=== PATIENT | male | born 1965 ===

== ENCOUNTER 2023-03-20 08:27 | Outpatient (OUT) | payer OTHER, SELFPAY ==
--- NOTE | 2023-03-20 | XR_ITS ---
The [address] [address] Patient Name: JEFFERSON MABRY MRN: [id number] date: 1965 Sex: M Assigned Patient Location: RAD Current Patient Location: [facility] Accession/Order Number: [id number] Exam Date: 03/20/2023 15:15 Report Date: 03/20/2023 15:43 At the request of: TANIYA SALDIVAR Procedure: XR foot LT min 3V PROCEDURE: XR foot LT min 3V COMPARISON: None. HISTORY: LEFT FOOT PAIN FINDINGS: BONES:No acute fracture or dislocation. No focal lytic or sclerotic changes. SOFT TISSUES:Negative. No visible soft tissue swelling. EFFUSION:None visible. OTHER: Negative. XR/XR foot LT min 3V IMPRESSION: No acute abnormality Electronically authenticated by: MALIA SCHAFFER Date: 03/20/2023 15:43
== END 2023-03-20 08:28 | disposition home or self-care (01) ==
LOC: RAD 08:32
PROVIDERS: Visit Provider Podiatrist Foot & Ankle Surgery
DX: M72.2 Plantar fascial fibromatosis (principal)
CPT/HCPCS: 73630

== ENCOUNTER 2023-03-26 09:27 | Outpatient (OUT) | payer OTHER, SELFPAY ==
--- NOTE | 2023-03-26 09:30 | MR_ITS ---
The [address] [address] Patient Name: JEFFERSON MABRY MRN: [id number] date: 1965 Sex: M Assigned Patient Location: MRI Current Patient Location: MRI Accession/Order Number: [id number] Exam Date: 03/26/2023 09:37 Report Date: 03/26/2023 12:20 At the request of: TANIYA SALDIVAR Procedure: MR ankle LT wo con HISTORY: Chronic pain in the left heel for the past 19 months. Plantar fasciitis. MR ankle LT wo con: 03/26/2023, 9:37 AM EST COMPARISON: Radiographs left foot 03/20/2023. TECHNIQUE: Multiplanar, multisequence MRI images of the ankle were obtained without contrast. A sagittal STIR sequence of the entire left ankle and foot was also obtained. FINDINGS: LIGAMENTS: The anterior talofibular ligament appears within normal limits. The calcaneofibular ligament, posterior talofibular ligament, and distal tibiofibular ligaments appear within normal limits. The deltoid ligament complex appears within normal limits. The Lisfranc ligament complex appears intact. TENDONS: No significant tendinopathy, tendon tear, or tenosynovitis is seen. SINUS TARSI AND TARSAL TUNNEL: No space-occupying mass is seen in the tarsal tunnel or the sinus tarsi. BONES AND JOINTS: The bone marrow signal intensity is age appropriate. No unstable osteochondral defect of the tibiotalar joint is identified. At the edge of the [id number] there is bone marrow edema-like signal involving the shaft and tuft of the first distal phalanx. There also appear to be hammertoe deformities of the second and third toes. PLANTAR FASCIA: There is a small plantar calcaneal enthesophyte. There is severe thickening and intermediate signal intensity involving the proximal 1.7 cm of the central band of the plantar fascia at its attachment to the calcaneus. There is also mild thickening and intermediate signal intensity involving the proximal portion of the lateral band of the plantar fascia at its attachment to the calcaneus. No significant tear of the plantar fascia is seen. SOFT TISSUES: No significant soft tissue swelling is seen. MR/MR ankle LT wo con IMPRESSION: 1. There is severe plantar fasciitis involving the proximal portion of the central band of the plantar fascia and mild plantar fasciitis of the proximal portion of the lateral band of the plantar fascia. 2. At the edge of the [id number] there is bone marrow edema-like signal involving the shaft and tuft of the first distal phalanx which may be secondary to a stress reaction or bone contusion, but this is nonspecific. 3. No ligament injury or tendon abnormality is seen. Electronically authenticated by: OLLIE TIM Date: 03/26/2023 12:20
--- OUTSIDE RECORDS SUMMARY | 2023-03-26 09:30 | XMS_ITS | CCD ---
Author Name Unknown Address [address] [facility] [address] [place] [address] Organization [facility] Care Team Providers Care Thermometer Tester Name Role Phone DR PEPITO WEINBERG Consulting Unavailable TANIYA SALDIVAR Attending Unavailable TANIYA SALDIVAR Admitting Unavailable TANIYA SALDIVAR Consulting Unavailable Tammy Sarmiento Unavailable DO Pepito Rosales Primary Care Provider MD Tammy Sarmiento Attending Provider Pepito Rosales Primary Care Unavailable Tammy Sarmiento Attending Unavailable Tammy Sarmiento Admitting Unavailable Bobby, Pepito P Primary Care Unavailable Bobby, Pepito P Primary Care Unavailable Bobby, Pepito P Attending Unavailable Bobby, Pepito P Primary Care Unavailable Bobby, Pepito P Attending Unavailable Bobby, Pepito P Attending Unavailable Bobby, Pepito P Primary Care Unavailable Bobby, Pepito P Primary Care Unavailable ALYSON Vallejo Admitting Unavailable ALYSON Vallejo Attending Unavailable Bobby, Pepito P Attending Unavailable Bobby, Pepito P Admitting Unavailable Bobby, Pepito P Primary Care Unavailable Bobby, Pepito P Primary Care Unavailable Bobby, Pepito P Attending Unavailable Bobby, Pepito P Admitting Unavailable Bobby, Pepito P Attending Unavailable Bobby, Pepito P Primary Care Unavailable Bobby, Pepito P Admitting Unavailable Bobby, Pepito P Primary Care Unavailable Bobby, Pepito P Attending Unavailable Bobby, Pepito P Admitting Unavailable Allergies Allergy Classification Reported Allergen(s) Allergy Type Date of Onset Reaction(s) Facility (2 sources) Ciprofloxacin; Translations: [ciprofloxacin] Drug Allergy Unknown [facility] Repository (3 sources) moxifloxacin; Translations: [moxifloxacin] Drug Allergy rash [facility] Repository (1 source) Sulfonamides (Antibiotic) Propensity to adverse reactions Unknown [facility] Other (1 source) moxifloxacin; Translations: [Avelox] Drug Allergy [facility] Repository (1 source) Sulfonamides (Antibiotic); Translations: [sulfa drugs] Propensity to adverse reactions to drug (disorder) [facility] Repository Medications Current Medications Medication Drug Class(es) Dates Sig (Normalized) Sig (Original) atorvastatin 80 mg oral tablet (1 source) HMG-CoA Reductase Inhibitor take 1 tablet by mouth every twenty-four hours Atorvastatin Calcium 80 MG 1 tablet Orally Once a day Active clopidogrel 75 mg oral tablet (1 source) P2Y12 Platelet Inhibitor take 1 tablet by mouth every twenty-four hours Clopidogrel Bisulfate 75 MG 1 tablet Orally Once a day Active metoprolol tartrate 100 mg oral tablet (1 source) beta-Adrenergic Chad take 1 tablet by mouth every twelve hours Metoprolol Tartrate 100 MG 1 tablet with food Orally Twice a day Active nitroglycerin 0.4 mg sublingual tablet (1 source) Nitrate Vasodilator Nitrostat 0. 4 MG Sublingual Active sertraline 25 mg oral tablet (1 source) Serotonin Reuptake Inhibitor take 1 tablet by mouth every twenty-four hours Zoloft 25 MG 1 tablet Orally Once a day Active Completed/Discontinued Medications Medication Drug Class(es) Dates Sig (Normalized) Sig (Original) Amoxicillin / Clavulanate (1 source) Penicillin-class Antibacterial Start: 05-13-2018 take 1 tablet by mouth every twelve hours Augmentin 875-125 MG 1 tablet Orally every 12 hrs for 20 day(s) *please review for potential _update for e-prescription and drug interaction check* May, Not-Taking aspirin 81 mg delayed release oral tablet (1 source) Platelet Aggregation Inhibitor, Nonsteroidal Anti-inflammatory Drug take 1 tablet by mouth every twenty-four hours Aspirin Adult Low Dose 81 MG 1 tablet Orally Once a day Not-Taking azelastine hydrochloride 0.137 mg/actuat metered dose nasal spray (1 source) Histamine-1 Receptor Antagonist take 2 spray(s) nasal route twice daily Azelastine HCl 0.1 % 2 sprays each side Nasally Twice a day Not-Taking Fish Oils (1 source) Fish Oil *please review for potential _update for e-prescription and drug interaction check* Not-Taking loratadine 10 mg oral tablet (1 source) Claritin 10 MG 1 tablet Orally prn Not-Taking Nasonex 50 MCG/ACT (1 source) Start: 04-01-2018 take 2 spray(s) nasal route once daily Nasonex 50 MCG/ACT 2 sprays in each nostril Nasally Once a day for 30 day(s) Mar, Not-Taking ubidecarenone 200 mg oral capsule (1 source) take 1 capsule by mouth every twenty-four hours Co Q 10 200 MG 1 capsule with a meal Orally Once a day *please review for potential _update for e-prescription and drug interaction check* Not-Taking Problems Problem Classification Problem Date Documented Date Episodic/Chronic Osteoarthritis (1 source) Heberden node; 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 Other connective tissue disease (4 sources) Pain in right foot; Translations: [PAIN IN RIGHT FOOT] Onset: 02-15-2022 Episodic Other connective tissue disease (1 source) Calcaneal spur, left foot; Translations: [CALCANEAL SPUR LEFT FOOT] Onset: 02-16-2022 Episodic Other non-traumatic joint disorders (1 source) Undifferentiated inflammatory polyarthritis; Translations: [Polyarthritis, unspecified] Chronic Other upper respiratory disease (1 source) Allergic rhinitis due to pollen; Translations: [Allergic rhinitis due to pollen] Chronic Other upper respiratory infections (1 source) Chronic sinusitis; Translations: [Chronic sinusitis, unspecified] Chronic Spondylosis; intervertebral disc disorders; other back problems (2 sources) Cervicalgia; Translations: [Cervicalgia] Onset: 06-13-2022 Episodic Results Test Name Value Interpretation Reference Range Facility Coding Summaryon 02-28-2023 [facility] PiddmuarUHy4pRg+PGhl YWQ+AV8HJIFpO85fvYGz dC7aB0IPBQoQCbdfPLOK QLmATbRvobYjXT0ltAMb ZXJu IC8+UI0mGPSnEehffJFy y5D7zFJ9A38ych0kOBbl sZC5MCTbKfYbkjeiq3df tWj2RSvaDzacDhLw OIRyoH94ZIG0aT19Cm59 vZRrnYFjr8nwnPe4HiNc ZHMcVBY9iSdcIBffn6Dz BVInQ18bwNDiw7M2 IGNvbGxhcHNlOyBlbXB0 dP9lWRqzuldtb2rjssfr Vvw3kn49lJDht2X4uNJ7 N0HmxjN9QOWxaCIs EelirABIhP3nawzhx4yp afdyTnZqDCZaWPz5SBo7 QLVdoSboSjOiDN59KNO3 EMNafgFoP3YmTJBz nFfcWkU5l8K0Wt0CD9BD KasqY3DXOEMFBKfbmAZ+ QY68zn91Y1HdJbgnWab3 ZFDiEAQ3eEA4kN0q HXCyHQtpk1Z8fNM8U0As joUrjb7pb3ipITSaHXfd D77fpJYgv0D1JDOivWP8 LDIlcUkpXnWfnI52 Oyc+BVRwlLfwq2LaKzdn m9aue3zchMb5XdimBBSb mtCbmKfjIJV8u0BsNv2b NCWfbAN5bOS5lM2r AgCfBcY6SLwnW945NxSx qDNiGopqE01aQ8AekVY+ SYSzTib6AEEngAreSG4n F8JrJRYgopldzQLd wJobJC3nBNDijssfZVYt yP6oTFDjT6v1NtAiSmS4 MCbhB5WtAQEfrgsuRo19 lG7pDdAfCsL0TVfu H4OoigO4HZXlyGBgSFph GMQ5W07zi4P8FWTaGKGj JLE5uAH8eU0ogHjutyjf bGVmdDsgdmVydGlj TIgtUCcnG917UDPxjXhi PkNvZGluZyBEYXRlOiAg MDEvMjQvMjAyNDwvdGQ+ SJYwYPP0rGonVPWx bSYrYMopQc9lqPnznPkv ET9nDQMkkcsfDKLodR7l ZCYxlRTsjBovJT8tYZHx bzwvv638CaVoCES7 YGQifYIuS0CpvN2gGkYr VUHnJMFzS9SbeIAbYWix A842IKbsBjL2GOZipvHf T4ArPDKmlUluGuM9 o6S8Mt2Ot4MkplmuE9Ol vKIyPeMnPdcjIMz4D6Kb PjwvdHI+OE41RVVpMH24 TSo5DEU9yQaqQJvv GLQzI4DopC5tMaElDSVl ZGRkOyc+PHRhYmxlIHdp ZHRoPScxMDAlJyBzdHls ZX4eMw5zHWVwRATk gJpznDIwIlMcy7pvUBBq IHddQM5rkApxS4NcsOI5 JQVge6n1Eq30U88vB9Wq dXA+TSLabVM3uEC4 bQ2zIoCnIbI7QBngS518 IrFkwHKvCbksj3xuj3hd pCk5ObF6FMEtigQylJnp BSM1r3JeIe97L42j IHdpZHRoPSIxNSUiIHZh hGawwu8zqC3gAl2+PGNv zUY4oJQ2hL6uLxXyQvA3 MWwzP371EgRfpHMn Wrunv0bmw6royCu1HeTz SBGyzhBswGegXUM0k0Ep Py32N8SiuZhak6JhFlp4 xe83uYXra0B6wRK7 P7XrRUZnhzvynGMrsDdz UV7vVQQdwkmxZZKzpK0r DGWpJ7o3AiGmAeK0JQri T3EzppV2LGBwsTVk ZOOkeQFSpI7shylzd8um aheyJdPlGYAbYLp6HVv9 KJWnfAqaJtDwVIS5GrO1 UDM8uMTyqK6qiMlc fkbhlW4xGim+KXA4vXJx qPIOOQ9oImeinTA+PHRk CBE5vZunVAujOBPboO2x OYWlF0k4IzYjXyK8 UMnuL3HhdyV0VOSdkJZm GGHhvKVDyV8yvvybu5bv vtxqUyMrTIVqLRr4MMn9 LWFsaWduOiBsZWZ0 DtN0WRE1fLYvzQ1oeXsw deyctY7wKte+QmlydGgg PNH4WEh9D5FeOqo7RNSx gAsyFH9hnDUoAYdu Qs4bhLzbxIdxKO8zLSQq xdxdt100VbYxt7amBTYu lXMsIBmmRJP0H46qb8T0 FCViDUWcGPJ3nPB5 mI1glQjdfvszoKBxdBtj drCkgZbxKPexDEiiW553 CQQwpEdiMqEhMAp4X6Ip Cdt3VMCscFreSD7p vVGuEAasFe8wyIxxoHzt XI9oWLPeuqsrp222JjSa j6zlTIKdgGGuTMdgJQE4 W95bb4J1YLAwNUOe GMV4nNS0uW5ziPskbjhg bGVmdDsgdmVydGljYWwt COyxW427TFYsgUziGePp gBh0B9QiOiu2LGBs qMjkWA2twEHzFKdoIl0o sLnefIdvXC6lRWIsxrrc g617ApJgf9apXGIwkJGo EMidWCT3B09js1S2 GVXpRXYbGTF7hQJ0gD2x bGlnbjogbGVmdDsgdmVy eTovORqvEXmtD261UFJq cDsnPlBhdGllbnQg BIxmYWs3C3GyBokylTR+ PA34QVMcGR76oUUfcXNq z5ozeXh0QhEhSHZnGIT2 kNjjDHiak1ZdHIXn R16hoGRxh7F3SGXutNhc xRSlHjYaiDL2eC1pQJuc hgwys8quocvtRjhvb3sj wh55iB22F23mVFet ZHRoPSIzMCUiIHZhbGln be2xnU8tTj3+PGNvbCB3 aVG7lI8gBOKnWpK3WZqv I776ExUfePSrHsul p7ipw8tpnZx4LzA9ZCCl cfFpkTqhOSR6h1HzAo20 M31yEEpiLUEgTHWeQPKc YIGbsUqdqh4ddO5h Ii8+NXLakWX1qHR9qM0j VvChXtJ2GGinG613PlIr rEEvWqhoH90yO8KooNV+ FMGzDjh2FKFoeCtx FQ9onFBbMQpwOv9lAEW7 UwIdDvWmGArwN3YyHDJi uqvgfcxozYN4WQHaOMJz oR49Te9jqSjuBAFs kYGBxJ2xaeela8vfsqln LiTjLMTfASd8PCx3ZRJz tJsrHwVwWHH7XvZ7TWJ5 qJLlpL3oqLpyeein oF6hO1GqUBCfcuvaGz65 dF7iMfSoKwP1COdfApn+ E4GJDVFCQEsqTXtDMjPK RVkgUzwvdGQ+PHRk QRR0lHnjYVivXIFmrR5y TVSvW2x5SjLcNmS9KVrr R8QqFWMursczSf93eR3m NkQeYtZ9SBjqN9Fz pxQ0IWHwpCXzKAtlKYR7 E68nl8N9UTXqAXKcJNJ0 iDG4eF1jwCsgbdfynJQy dDsgdmVydGljYWwt BSndK895CQHanZslLlTj YfX4GfK8AoB6S7VfLnm7 SXXfoPvbYG3ayQDmAAew Co3foWnhnAahDX5r VYSlmosjGJIkeW3rYFUk aSDveVdqRX1aMWNvqwwn c042GiFhNOA7EXKwmYWo Q8FmzI1eUqVnHXUq VYNdW7LfyVZlNBelF624 RDflZhH5OKDtsvJnO2Ps IOJksUmlTpO5j0I9Nn87 NyBZZWFyczwvdGQ+ ZMBxEQL6kFyoLUliUEBr yW3jUAVxT1z2VyGfFrF0 OBusZ2DzNROgovecEl11 uU8iWqTxSuM4UVzn X0VgpmF0GNPygCKrTIzh VHT7B01bh1M9GWVpUQEb LDD1zPJ8hR1gqBjqyvxt bGVmdDsgdmVydGlj DAphKTvjD459TUGelGcd Jv9ARFX1H5DbDcj5VWIr oCdfDD8liRIiKUffWo4s tAymqTvaZJ4uRFHr scahTNGocA6uXAKphWGi qSexUB7eMDOlcpafb702 LpEfDOS2DBUzxCCaX7Lg hC2hKrWyYHInGGNo Q8YzyTRxEDkhX158XXpg ZbE3XCSfcgMpF2WjFFXk oRhqWiW7v5O7Wd0TLWot dGQ+FQ14zz83C4Eh DzjwFhm2LTHnTIN5nQY9 yT4iULLsPUupp8T9hMN6 N8XohwNfby1tc8snMQAt PLahO07abZNdm4K8 XXTvcGI5FTPjhYpyDkLg vF46Iqh+ZFXssKdpf9Lp Scscu7rus7vldCs2VnBe JSIgdmFsaWduPSJ0 x5YuVx33A54rUOcgXPBr KQPyRDZgBYUcjAqeki9t qZ3wLm3+XFGqnSW9lHU6 hK9qRbEvQqH4WEkb S119KqRgdHExMuvfw4gc t1gkxCh8NmMwLJMbbjCb rQlbBWC7m6GxUb02G4Xq yYtig0FqPiq4ol67 qIQxp6Q3fBX1M0PbRRSc jtgxnBZbtOmnDB4dKSCw xrbyGPDquA9cQISbL1i9 DwEcDlY8LJpbJ8Bk ryD3EHPhlTHbGGInuBGF cS1khxfea9etcbnkZoEn SQXnHXh1QQr3STLqaPor ChIqCOL2OgO8VLS4 tLWsqV7jiOeujnhsgH4j Oyc+NRl3p5fauHOeNW9f sXZ7FR88OI69rLWka3G7 uFA7I4BePYElhvwk kbypdCY1RRDmAFCocB54 Ti4clLcxKg9mMUDkEUT5 CTJpnIPeJ2MyeY8kPmXj SZEdEZJvJ5BhlRSz TGozD251NEfdUbX8ATIz uiQgE9KmTDKbkVtnBaL2 b5U4Uq1XLE98XS62IL78 zMQhe8Z8cGE8X3Zy WXNuqyeweykceND6FREf EKOsyN67Ga1yiQxrUx0c ZJQgJVY4KJHtaLTvS1Im bN4kZoNxGYDbZACu D7LzeUYwPGirA152UHpb CwV2XJPhsxLgI0MnXKZj kIarIaQ8t9F5Xo6KSh57 MH05UA26yNUqv6Y7 wBO5X4AiZWFqjxfgkimb hGH9EFNpLKSylB07Tw5k sAzgLo9qSUEqQVH4GCXz vUHiF0JnxH7hGqBz UJDuZYThM2BepQKhYDab E757TAdqAuL0PLAurdSz K4ZuTCTrdNthOsS0v0O6 Hg9MJMjhyah3X6Qs PjwvdHI+UI56WUJyKU38 oEPvkHXmw0deoNp0GqAd SEPnALB2eIkeYJtqv5Iy WSVcC43luDDbf3E4 IGN (more content not included)... [facility] Coding Summary [employer]Base 64 MldazgyoNYz3oSp+PGhl YWQ+HY1APUTeR04giXEm xV8wL9RTUXyPXhuoHXEI WQpTPcGlcxVpLX3kzLGj ZXJu IC8+SY4nIBUkPvojcMCi d0R8fPS2J03shm4jWLpy hDB2UTKfTvUkayzbb2xk gNv1VOmgBatjLkBm PBPnrL59YKR8pT14Oh84 kMWarFJla7tbiTo4QsLg UULwTXV1nYfmKVnso9Qq FNIeZ87peOOvu7R1 IGNvbGxhcHNlOyBlbXB0 lM7sGLwnousta7ftkqma Kwi8mi74nBIip8D6fOL6 B3YhsoH8YAUkmNBb AehrdHBWaY3jtjkdw0fp seesMzPiLHMoAAg4LFr0 SHZifQahBeOdQN41YMS1 OBFayzXoK4RiGWBl xJecGpJ6j9S0Yx7CY5JO WkuqV9GBIFCSDAxlcHP+ GA16ec36R3SpIwnnFhv7 IACnOUY4lUD2wJ8r RFFrBUvoi2H8kBT7T7Nw wtGojp5fb6aoQNYgSSyv I30riQLeh5Y0SFGisKK5 NQQkkOdqHyKchO09 Oyc+MKUqjTwzg6KvKoul s0opb2kkjXe9IlmeODBh pjKnaDexTYI3s7AbVn1n IISwgKM0aAI8cA9o SaCyIiW9IRuvR797EeIo rQBhPdoxI63vP5KrnOS+ NEKpDre4MYLvmFkzYX5t Y4WqUHKogkuggMPu xYwnPD3xMTGapcyhICFd pB9xCIZjE6x9OxMaJyS7 JIwbJ9DbOEUghrrdYg60 lZ0eQtYrWfP8PIaf K4MwgsW5JDRooKErZBgl KVA0G02oe5N3ZHVtHUYj HOZ9hGO4jV1wxGhcjhta bGVmdDsgdmVydGlj VYoyECuyJ346WUQozPvc PkNvZGluZyBEYXRlOiAg MDEvMjQvMjAyNDwvdGQ+ PRXgFRR9bQgySZKk vESkVJgcEx6cxFttfMcr NA6pHWCaqdtmXOZewZ1k YKInoKEasEtfLP2uMESt ynmiu022JcMmUDH7 SXLvhHQeJ5XxkP6iNuIj ZSSqHSLmI0JcgBMqXXce Q820SZmdRrF9UTLcncRr E6YwDEDiePgwRfV4 q5N4Pu4Fe9LcahwiQ0Wh uQZaWnEsPiglMVl8G4Ga PjwvdHI+VH60MDZsRC04 XMp4SHG3cDpyQYid AELpQ7PiaI5jKfOsCFQu ZGRkOyc+PHRhYmxlIHdp ZHRoPScxMDAlJyBzdHls RM5eIa2qBOSoJITc iZxirYPeWmImg4xsIXAs ZYwsXE6xtBolC6TzmUV3 IZPep0f4Qw66D16mO9Xk dXA+JYCkzGS5sFQ9 iV9lAsLkQqG9YSqyY881 SnQpoPNlLydbc4bwo5of rZd3FuT3FTWuoaMvzZlc PZF5o0HbBe05C42o IHdpZHRoPSIxNSUiIHZh eYlnxi9ikS6cAh7+PGNv sHI0tEL4pS7nUeGuOuZ7 YJthH479PuIfdILx Lnjpk9tbr3tssTk9ZpCx TTObhkZjsKsmCND0o5So Po76D3WepWser5UkJvz0 og09mCArh9H1aZT8 K4ZpHJWczvizvJZduOfg EP3bSYVtoibbXXDjeC0h BISlO8o3DmXvKoS4BAjf Z0ByihV0AXPypTIo PRVukAOSkT9zwbppg1pq ubtbUlCrYMDzSJh8AXj0 MCUzuXrfYyKvTSO6RqG0 XYD9rZNkoM3htGlk qdyvpO7bEiu+BWU7zGOm wSPAGD6sKvjjuJC+PHRk SZQ7cTtyKZkzHRFkbX2k QAUcT7o4ClJsCrC6 BDowP4OwaaP5ZTOldISg GBTyySQRpF6zbnrwj5nw wkzpJpDsOXXwQYh4GQg4 LWFsaWduOiBsZWZ0 SjK0CJV8aRXztW9npYxc hjcmvG2kXye+QmlydGgg ENX3BOv6I8LrIey7FGRa lIrwIP1wzFSdXXmi Nz9zyWsfnXskYH5bLBZy jxulv514MnCqb0mvYFMz nPPyDUspNEK2K30is6T7 ZYVzJYEuJWA9fJE4 tK2yzUpcxopbhPUgiJwd cnLkxRigWLkrXQxmK273 TCXusMhkQbMfIJi9E8Ha Zgt4BLHzaSwgLJ8o iXOaFSpuVn2jaZyadZei LC1kTIPnlroiw104XqXj x2pnELGmuXQpJMlvEPK5 T16fs4Z6SUPdHMHa TSF6aXC6iS0roSxkiiji bGVmdDsgdmVydGljYWwt IHthM589EVVozIgxVmIi vPh3K9PjHmu4SMBm hAqhMR0mrQJdFDnuSb3q aMuynNeyXF1wLBRcsrgu y286SgByq0wfPXBooMWo QFwlDTO0I21fu1A6 FHKgEEDkOGS5qWZ7fM7s bGlnbjogbGVmdDsgdmVy bUzbNQzwIRdxK411JTTr cDsnPlBhdGllbnQg TYyyPKs9I1GxOackqTO+ AR67DLArSB63qCKbgLXt p1vosYe0PbAcISToFTI8 mNteUOlfg5ZjHJLz H36pzLOij7R3PPLrdBim eBWaZmMxeER2yU5uDXcl psljy6otitzdVkhrx5jm kh53jZ67H71rHLic ZHRoPSIzMCUiIHZhbGln qo1moI3aTr1+PGNvbCB3 oYW7uO0lZBYhViO0RGwm G538VqHfsCKjFcde d6zpi0ughLr4PeZ5ZTEj qbWraSzlNMP8a1TiBk09 J58hCLvrZMViYGCcZDGm NKXunFzwyc2xlV9k Ii8+XWFoeDK1tTF7bR1i VgTdKwB7HGwiV192AdNt ePPfUplwU30kY4RfpPW+ BJWjHxk9RIMafNqz HE4xgRScNKlzVm9uEKG2 XtOcAeWuBYaxY6SzAJPg bbexufwjiEQ2QXVnYYGo fG99Ul7eiPcxEYVv oITAyQ8eybmkc7hslpez UdGiEOWhCQo2RUp4CBLt nLbaFmQnFQN0KiD7YJM5 iOKbgL4geTpupsxn eW3yS1IyWRUboqozZc97 pB8lDeNlRlJ3TZdeJau+ R8LOSKAOCNcgLNoRUmEE RVkgUzwvdGQ+PHRk UGR3wWpdIUjrTWXheU4h QYWdL2l1CgWgZlK9BHyr D4NfRWUtkcioVa65cH5b NpAqEiN4KMqaZ2Jo euZ9FIOrwCOaCUuzOSS7 X04lc4Z1TQMnMIFzURM5 xIA5nT2gpPguupowlOUt dDsgdmVydGljYWwt YIlfK048SAZnvLwaQvZl UzH2MlT2SmV6O9NmIkc7 XFNkwOtcKD0idPSsPMwv Cp8zcWkfaPqvBL6r QVEephveAMRpiY2mHHSv zOJxwYurCY6rZOSejpwk u286UzBaGJT2VNPzjFXa V4SzdJ9tHzRpUBRo VQSnL1UwdSFoUSsaN812 MNjeIcD3BDZdbcFoN7Tu YDPslPaiKfL4p3V2Rt46 NyBZZWFyczwvdGQ+ MQLsQTX4jRzcQPfvTXPh yI6tMVJmU6c6SgIkVfN7 XBsyQ1KcQZQllgijJq67 aS0gRkInIlI8FZgg N2YneiL3JYJbrNNeUHbs BPO1F85mq9B9TNLmEUZy PSX2oBG5eF4zpRqluvie bGVmdDsgdmVydGlj CDivGGphM792PTDebOqk Gz1XIUW5H8MhWis3QFUd dBkrFY7nrVZxZWjxWu4m nOpzxZcgVA1rRBQs hhcqUPKjgE0uROBnrUIm oNmtXH5gZVWttagjd955 PhZvGTJ6DIUqwJZsN4Ke aS9qImAzEUNdEPIq K4IioSVaQLbwV898ALtu UmF1IQGrtqSiY5SiFMZc sYncFsQ8w1P7Vh8KGNlk dGQ+GX19ev77N3Tc YlpiRph1VSTlAGA6hHY0 vP8jWBRqXDqtb8G9oVV4 Z4ZhktBxcq5wz6hfJHDx AVcbD67cuELnr0N5 XCMvxXZ1UYDeuYxkBjSy yC09Bhi+AIHqlIcte0Sb Cbclv9vrh3ibxOi3HvQo JSIgdmFsaWduPSJ0 n1OzSr03I06tHCwdCQIg EWPvFSMqJMIazDdanr3d dS5fCt5+WHPlqSL2zBC1 gG9yXhSeYaP9GEmj Z870DvRthFNhYsvzm7iq o8zvrCm1CrAwIYHuloMr hVkkPDY5w2QdSl50V3Ea vVphi4LmUjc7jf82 pNDae4P5bWQ6I3ZrIQTg ygybbVKkyHwjOC2wIHZs nympNNEuuW2aOCNtK8n1 VfKfQzK3DOngO5Jz jtL4ILNubUAuTGLftWBZ bA3nmarut0cfwksaWsAb FMOaBPg0QAj0SWLkcHvw EiXkZPL0BeP2JCG3 cEZzaB8hfOdfnfjexC7r Oyc+PNm4a8jhiVRmMT2v vFH3AI42XE41tACho2B4 gQO7V1MtJEMtcziy nocgbQE1ALNaIFOqiX17 Yb4ybFsfVo2fSAPfBUE6 SETknAUwP9CjdG0oZkUv ACOyLGRcT2JoiDBr XPwfJ439AUqbYgE0PVJa mfBbK0RqHMIrqZscPvW1 m0Y2Qd3UCL38NH05HU39 qIXro5F5eBT9Q8Op JIEbxfosivcopIK2DTWa VISigT84Ef9pdTanCh3z HZWtDXF9PTCsbOIrL9Nq uO9rUmRgAPKjEGNb C9OcxHBdSSmeQ304DWcw NvX9YIPesiEgR4DiPOVj xDorGkG7e2X6Nx2KVg30 MJ28RK69xTLaf1S9 nDC1B5PjCCUcogdepxnp aSW3BUMbJXGihC27Wq0q bMgqAd1rOLIpIQN8EHHb zBEuV8UpwY4kPlBp FBCtVFNfW5NjdOYxKIhb A033OCoxEgO7WXClvpUw B4WeEDGzfQilGyA7v3D8 Go6LICrpnmh7L1Ff PjwvdHI+WL23IWEeHI48 kVJqtYIxp5edkFp8KtJm KSThREF1yIwyDKgvu8Gz GHFmK24tbFKol7Q0 IGN (more content not included)... Normal [facility] C Throaton 02-12-2023 C Throat Ordered by Discern. Normal throat malka isolated No pathogens isolated [facility] Comment on above: Performed By: #### [id number] ####[facility] (DEFAULT)[address] [place] [id number] ED Clinical Summaryon 2023 ED Clinical Summary [facility] ? Urgent Care [address] [place], [place] [id number] Clinical Summary PERSON INFORMATION Name: JEFFERSON MABRY Age: 57 Years Sex: MALE : 1965 MRN: Acct#: Visit Reason: Sinus Pain/Congestion; CONGESTION, HEADACHE, SORE THROAT Arrival: 02/10/2023 15:45:01 Discharge: 02/10/2023 18:07:00 LOS: 000 02:22 Check In: 02/10/2023 15:45:01 Checkout: 02/10/2023 18:07:00 Address: [address] [place] [address] PCP: Pepito Rosales DO PROVIDER INFORMATION Provider Role Assigned Unassigned Edelmira RN, Annabel ED Nurse 02/10/2023 15:56:41 Jennifer Vallejo PA-C ED PA 02/10/2023 16:30:17 VITALS INFORMATION Vital Sign Triage Latest Temperature Tympanic Temperature Temporal Artery Pulse Rate O2 Sat 96 % 96 % Respiratory Rate Blood Pressure /74 mmHg /74 mmHg MEDICAL INFORMATION Medications Given: Allergy Information: sulfa drugs; Avelox; moxifloxacin; ciprofloxacin PHYSICIAN DOCUMENTATION DISCHARGE INFORMATION: Discharge Disposition: Home Discharge Location: Home PATIENT EDUCATION INFORMATION Instructions: Upper Respiratory Infection, Adult; Earwax Buildup, Adult Follow-Up: With: Address: When: Pepito Rosales DO [address] [place] [id number] DIAGNOSIS: 1:Viral upper respiratory illness; 2:Bilateral hearing loss due to cerumen impaction Patient Understands: Yes - Patient/family/careg iver verbalizes understanding of instructions given Comment: Normal [facility] ED Patient Summaryon 024 ED Patient Summary [facility] ? Urgent Care [address] [place] [address] PATIENT DISCHARGE INSTRUCTIONS Patient Information Name: JEFFERSON MABRY Age: 57 Years Date of : 1965 Reason For Visit: Sinus Pain/Congestion; CONGESTION, HEADACHE, SORE THROAT Arrival Time: 02/10/2023 15:45:01 Primary Care Physician: Pepito Rosales DO Attending Physician: Jennifer Vallejo PA-C Comment: Patient Education With: Address: When: Pepito Rosales DO [address] [place] [id number] Upper Respiratory Infection, Adult An upper respiratory infection (URI) is a common viral infection of the nose, throat, and upper air passages that lead to the lungs. The most common type of URI is the common cold. URIs usually get better on their own, without medical treatment. What are the causes? A URI is caused by a virus. You may catch a virus by: ? Breathing in droplets from an infected person's cough or sneeze. ? Touching something that has been exposed to the virus (is contaminated) and then touching your mouth, nose, or eyes. What increases the risk? You are more likely to get a URI if: ? You are very young or very old. ? You have close contact with others, such as at work, school, or a health care facility. ? You smoke. ? You have long-term (chronic) heart or lung disease. ? You have a weakened disease-fighting system (immune system). ? You have nasal allergies or asthma. ? You are experiencing a lot of stress. ? You have poor nutrition. What are the signs or symptoms? A URI usually involves some of the following symptoms: ? Runny or stuffy (congested) nose. ? Cough. ? Sneezing. ? Sore throat. ? Headache. ? Fatigue. ? Fever. ? Loss of appetite. ? Pain in your forehead, behind your eyes, and over your cheekbones (sinus pain). ? Muscle aches. ? Redness or irritation of the eyes. ? Pressure in the ears or face. How is this diagnosed? This condition may be diagnosed based on your medical history and symptoms, and a physical exam. Your health care provider may use a swab to take a mucus sample from your nose (nasal swab). This sample can be tested to determine what virus is causing the illness. How is this treated? URIs usually get better on their own within 7?10 days. Medicines cannot cure URIs, but your health care provider may recommend certain medicines to help relieve symptoms, such as: ? Nrey-hsp-xymtplz cold medicines. ? Cough suppressants. Coughing is a type of defense against infection that helps to clear the respiratory system, so take these medicines only as recommended by your health care provider. ? Fever-reducing medicines. Follow these instructions at home: Activity ? Rest as needed. ? If you have a fever, stay home from work or school until your fever is gone or until your health care provider says your URI cannot spread to other people (is no longer contagious). Your health care provider may have you wear a face mask to prevent your infection from spreading. Relieving symptoms ? Gargle with a mixture of salt and water 3?4 times a day or as needed. To make salt water, completely dissolve ??1 tsp (3?6 g) of salt in 1 cup (237 mL) of warm water. ? Use a cool-mist humidifier to add moisture to the air. This can help you breathe more easily. Eating and drinking ? Drink enough fluid to keep your urine pale yellow. ? Eat soups and other clear broths. General instructions ? Take nusk-xux-nbwstwb and prescription medicines only as told by your health care provider. These include cold medicines, fever reducers, and cough suppressants. ? Do not use any products that contain nicotine or tobacco. These products include cigarettes, chewing tobacco, and vaping devices, such as e-cigarettes. If you need help quitting, ask your health care provider. ? Stay away from secondhand smoke. ? Stay up to date on all immunizations, including the yearly (annual) flu vaccine. ? Keep all follow-up visits. This is important. How to prevent the spread of infection to others URIs can be contagious. To prevent the infection from spreading: ? Wash your hands with soap and water for at least 20 seconds. If soap and water are not available, use hand scuba diving teacher. ? Avoid touching your mouth, face, eyes, or nose. ? Cough or sneeze into a tissue or your sleeve or elbow instead of into your hand or into the air. Contact a health care provider if: ? You are getting worse instead of better. ? You have a fever or chills. ? Your mucus is brown or red. ? You have yellow or brown discharge coming from your nose. ? You have pain in your face, especially when you bend forward. ? You have swollen neck glands. ? You have pain while swallowing. ? You have white areas in (more content not included)... Normal [facility] Strep Aon 02-10-2023 Strep procedure control Pass Normal [facility] Comment on above: Performed By: #### [id number] ####[facility] (DEFAULT)[address] [place] [address] Streptococcus A Negative Normal Negative [facility] Comment on above: Performed By: #### [id number] ####[facility] (DEFAULT)[address] [place] [address] Coding Summaryon 01-15-2023 Coding Summary HTMLBase 64 JxpxcvtxVJn2vCq+PGhl YWQ+WX3FZXJuN26fuEYz sT9pI3TAURyDJfgeCBIZ DXgDFgXkprLhXF1jkVMm ZXJu IC8+EN4fBQRhXulmxXVo d0B5eCI3I34awi8uVOce aDU5BCGeBsNiicoyi4ca qDz8HTifYihjDwIq FAKrzR39ERO0cP36Gs21 mZHzcONai3gshLa7TtIt DHOuXKL8iZoxNChsf7Lg NSRpQ25rjSKzj5U3 IGNvbGxhcHNlOyBlbXB0 rT0aAAowvqvut0csbdue Yuh4lm62rMWap6W8sNX3 V3RjooR0QKRioENe QjcgdTGLxT9yamrla6me aijoNbRhCUBaPIq3ZEq9 JAJfvFnjFrFfJX34ZUZ1 ATBvrlMqF8XvAHOb lCscXvK3n7K6Tb6ZY8UW HjxnI1OTQVZKGSwazHV+ EF87bi17F8AyTpswTeb0 PMEePNX7sCZ0qG2k RFKaRZcgy6S3mSW3P3Ch qkGepz2yi7nfKUVuWCma H65roWWkf8C3PKQboPL0 HUEjpXqiViQvqW77 Oyc+MVWfzTekt6BjVsqf b2rrv5atoQx5JzghYHQw drSxaRgyMQL5b0GkMf5f FDBqeES5dGQ9yH7p NjFkOkF6ZJfhI748ZeSe xCSbQgtnC04fD8WhoVU+ XHFbSsp4UHUxjVcwOA5x U8ZdSQQaipvcoWSi oPibSB1jYIIyjekhVNDv wC2xRSZdF8f3EwXzLcE0 YXbyH1ZhDPJniumfTp64 pI4vXrAtIxB1JTyi U9PkdwT4OPTrtLSjFOjn NOL4J94xa9C1UCWpVRKc JIN5qFZ9cF6isAznodhf bGVmdDsgdmVydGlj FRzkLQfkV074HTPfoAnn PkNvZGluZyBEYXRlOiAg MTIvMTEvMjAyMzwvdGQ+ ATZhKRD1pIxfCKCz nOGbXJjtEw5ovAcwzIsq JM9nRIXgqvsuUTJpeW4e CFFofFTncAufYQ4bNTUq bpusy924YyBcHTG3 HXRbgWGvD6HixJ4kQgPr SDJuLJVhU5OjcKHjPOtj F713PUrpFqZ5VYPiamGb U9HpVHNuwAtwMsZ8 s8X0Qm2Is0SvfewyJ2Sz wPThEiSjOnemJPz2J8Ly PjwvdHI+BI65HQAjPB32 SOb3NVY5cLvcPMlv IBJmP1TikA6hBnAwPOEu ZGRkOyc+PHRhYmxlIHdp ZHRoPScxMDAlJyBzdHls AR7zXl4oEARiLVGw bDgdkSXsAlOyk7wmMMFy QBcgXP0psWhnH3NabVX8 PDSat4m1Hx92M14aY1Qh dXA+JRTbpHN6bHR1 yY2vVsPeSlT9ZFzlW638 KeEekVFcDcgri6hxt6ve pLx4XmQ4BTGvjwAdxZgm YSL1q1OhZe50N38t IHdpZHRoPSIxNSUiIHZh pYsonr2xhJ5lDs9+PGNv nZZ6oMK7xK2oPdZsKiB8 SFepY398WfXrkEOt Qvmbd9iwh7yhtRh7CiPj TIByggJbxDlbFJH7l6Tz Tv11G5NaqNehc4WiFdw5 by99vIXzg0R3eOD0 S1AjQGVqlwoopMNoaGue OF8xAKEjpfnzQJJmjU9g VTMtV0z7UgKnFgX8BKbc U1XegaY6VKTmgCKy ZYIzfUXOeD9owsrdr0vq zlfvXcFxRWNmXEq3SBv4 QMQvcCdkXeQkKQA5EyH9 NNR2gJYjvJ7ebRoz ykhhvZ7oJxo+BJI3nCWa aBHCCR6wJjuitGB+PHRk FTC9vFvuZYfhMCRcaZ9m NSSuG5w0AsFeZvI4 VAnvZ6NnuuY2EKSxdCAc WNYydHZGpU0jlsnqg2jn dyxnVtGmIFWuGXz6SWz5 LWFsaWduOiBsZWZ0 NoY1BBY9cQNxbC6srLox aukrvG4kWvs+QmlydGgg CRT6ODf7Z8ZfPqc3GQPo tUvzML7nvGCwAHub Eb1nrVvccVwaVT7rKJVv uizdo242DxOna1baNRWj aQPyCShpTGI6Q10ri1W6 DXHuOOTjHEW6eJE3 hY1iiTkjlgpscRMmaAwk zxEtnPifSWwjBRjpK878 UXEesAbfXzCyTPj9X8Pw Mih4TGFamVguNM7s lPYnWJflTn3psYmajDjv EC5hQQAyneahm452BfEo g4qgEDZglZYhLSbcXUH5 H97pr1W8HOBrZKHz FRD5pGN7pN4enWljbfps bGVmdDsgdmVydGljYWwt NRhmT977WFSeyUjdNySv gPk8D1RnOid9CFKd bFhsYX0wlXXbGPvmRj7s oMkmtWgfHZ0yWYJhmyyx f754ObVhz6vhRUJutNCh JQgoESP5Y62fs6Y5 AHIuYUEiUZQ2mZT7jE5n bGlnbjogbGVmdDsgdmVy iAwpUIfcCRgcX056ISQo cDsnPlBhdGllbnQg ZDimMKp3V1ZgLvzgvMR+ ZA20VLIsDE22mKRmhYEu f8qmdEj2CiCqUOTzEZI0 pZbnGKzdj2EyWLKa B11vwZVpm6H9LJYqzSpx oBStImOjpZU5pN0gFVar fabrf3csbesgHzvrp6ld hq46yZ52Q40yEUxp ZHRoPSIzMCUiIHZhbGln jg7nmJ5zTy1+PGNvbCB3 iYD2tQ9fIEVqZkF6QVub H326MrCvqYQkRjqy k6hod8ryzSa6FaD7XVOm jpKolAirRSA6o0YgSz94 J02hQIshRRAzHZAqWZEv NWMrtAwbvo1pwI7y Ii8+KTPfgKK9cUD6fT8y TzChFtR1BEvsF499ZbSi zTDrPihtG34kS2TcbCQ+ ZPQgOfn7ZNQdeDze RO3dzQBpTSliBk6lCUR8 ThTeVaRuGTbmX4DcEJKr hrvxxqcutYA5LMMuRJSr wT06Fu3vcErdCIUq xHQFgM2rdtfeo2khjnup GfFzCZQhNKa1LLj1VEJt yYofYzKmOCF4MrF0UEB3 bHIwgE0zaNlzmrtz uH7aY6JuLMTnqyhwTd46 pQ3fRbVuCgT8IUagWbu+ Z7VQUVPHCZmdQHsXHaVG RVkgUzwvdGQ+PHRk ZDZ3eYlvVRmmLVOfcY4e OOPrB9k0TiCcGwC1VYyt H3MhPESrpdnmWp01oI5g HcMkLsW9EFxaW4Tk klA1IZAaqDWjXKmhJIM2 B90sl6Z4SYTpVSNmXPV8 kII6vG0mgMdyeqhjeYGy dDsgdmVydGljYWwt OJicH054TQEceTdzXjLc PwP0ZpZ7TkS3H9TiDnr8 MUAyuYpeQR0ktGBgLXhk Db9waCzngSgzIW7f IKCnfpgaMJSpcB5tJPMw iTTnsLyvUY7zPXKprtrk x532VvUpALH6GCLhmNEg I8YxlL8gFdZoXXSs WWSjF1RumWMzANnuH104 OEerGvV3TNJxdfAjP5Kd CKYknQbxHmU1w1C5Xe70 NyBZZWFyczwvdGQ+ QHIiIVI3dNcmRRdmRRLu pY7qIVAnY3i8ZaBqTwG9 BOhvW0SgLOUwnshjUw33 xT3vOcTuCzN3NZwi Z4CktrU2JBTdgJWlPHfe FXL5P93bt2D8QWYmRJQd BHO6uWR9yU0ujBdmunmo bGVmdDsgdmVydGlj EArtLJxhL129PIVmlZjo Yu4LCHX9I8UaFae0TOWg wIqoCG1noQOePXswCf8d vOthbPlfBL4oZQPx enycZCEmfD5uHGRuuLPj rXbsCQ6wHIDcxfvqh316 ZfPrUKV0BHZlbUWiV5Nf pV7sEdCwHABwLHVv X0ChgIHrHZvvB480JMsp PcC9FQPuvnRoG9CaAGCc aJczQzV9s1V9Wt0YJTsd dGQ+YP85hc03S2Ei GxaoBmi9HAAgSHE1pWG2 mX1nXGJgVXfnx8S3zNB0 L2JygiOizi3ol3wiOVAd MBawL02fuZTcm2T9 XBSzfYO9RHIlmIacPjSg qX61Pkx+XMEfuRcsm0Mz Swodw7nzx4rnsQe6VuOs JSIgdmFsaWduPSJ0 f2DiVe32E54rYFjsIRDn SABdAUHfURPfxJqcbf9a qI7fDs3+SVJjmBK2jAK8 gA4fEzJdPtS7TQql U446RjQwkHArGabze1pj e6ytgCd1AhNsOAYwelKn jFdxIGS7j7LcTp02Y6Bc cSpnc4QnLvx0tc59 dOBxj2H5wWK6B5WlWTZa ezkjvBUqnCroQD1iWOTi jtxeEQTcwO9sEEQdL8f8 XqZgViH2YQdrM2Ax uzV4IEOlwEEjKDEtsENU zL8qnydvr8uxnigtQzAi MKKzPQl3GLg3WWLgmAbb DdLyGFR7BgE3PPP9 mKOluF5rxIycuakqdH4a Oyc+SOm0e2lyeKBjXB2l cNB3DS61IJ51cKZtd0F6 bNS7U6QxNMAimqfv qehiwEJ7IXDuTZXojQ77 Sh4mzFwaJp4pVLQqFAJ4 HYHvwKOsZ8ZosY3cBtYg LADyNXIhV3XlyFZj ZBtgA153KZdvDzW8PFBj dxTrM5OdJYTbrEatPgE9 c5H9Fb7AWE16JY01EQ85 wGXia1H6jBY0X9Tj OCXncfhwoxhxhYE5NVSq REWinB96Vu6hoCyuFg9i TGTrKUE0TMDbyEQqW9Hm bP5aYiOkHUDfMGVu A9ZvkYHpMPwjP935XEvp BbE9QNLzlySqW1BjBKZr sHzmKsI3m0X6Tp1SLg27 CA01UZ61pZCls3N7 iMN6V1WuDFTnrolmsezg wKD6LJXpBGJwhU84Ws7t rTtkXa4sDBHsSVE7FZDw uJCeI8ZwoW9kInHv PVFsELQzB9LekMMrIVad C246ICybHqZ3LJBhrnZt C0DmNDZpaJahYgN3r9U7 Sj6BPBciesm7I2Vv PjwvdHI+QW08HHRsEN93 zSEjvLDuv3txlLb9OaZb GNZiLWI9wKyzGUubm1Jn IOGtZ58ldEDgq6E2 IGN (more content not included)... Normal [facility] Reminder Messageson 01-16-20 Reminder Messages - From: Pepito Rosales DO To: [facility] ([facility]); Sent: 01/15/2023 06:29:30 EST Show up: 01/15/2023 06:30:00 EST Subject: Results Follow Up Due Date/Time: 01/16/2023 06:29:00 EST lipids not at goal, but he is on lipitor 80mg a day. Results: Date Result Name Ind Value Ref Range 01/13/2023 10:01 Sodium Level 137.0 mmol/L (136.0 - 144.0) 01/13/2023 10:01 Potassium Level ((L)) 3.5 mmol/L (3.6 - 5.1) 01/13/2023 10:01 Chloride Level 108 mmol/L (101 - 111) 01/13/2023 10:01 CO2 27 mmol/L (21 - 32) 01/13/2023 10:01 Anion Gap 5.5 mmol/L (5.0 - 19.0) 01/13/2023 10:01 Glucose Level 107.0 mg/dL (74.0 - 118.0) 01/13/2023 10:01 BUN 21 mg/dL (8 - 26) 01/13/2023 10:01 Creatinine Level 1.06 mg/dL (0.90 - 1.30) 01/13/2023 10:01 BUN/Creat Ratio ((H)) 19.8 (4.6 - 16.2) 01/13/2023 10:01 eGFR AA >60 mL/min/1.73m2 01/13/2023 10:01 eGFR Non AA >60 mL/min/1.73m2 01/13/2023 10:01 Calcium Level 8.9 mg/dL (8.9 - 10.3) 01/13/2023 10:01 Bili Total 0.9 mg/dL (0.3 - 1.2) 01/13/2023 10:01 Alk Phos ((L)) 29 IU/L (32 - 91) 01/13/2023 10:01 AST/SGOT 35 IU/L (15 - 41) 01/13/2023 10:01 ALT/SGPT 47.0 IU/L (17.0 - 63.0) 01/13/2023 10:01 Protein Total 6.9 gm/dL (6.5 - 8.1) 01/13/2023 10:01 Albumin Level 4.0 gm/dL (3.5 - 5.0) 01/13/2023 10:01 Globulin 2.9 gm/dL (1.5 - 4.3) 01/13/2023 10:01 A/G Ratio ((L)) 1.3 (1.4 - 2.6) 01/13/2023 10:01 Osmolality 277 mOsm/L 01/13/2023 10:01 Cholesterol ((H)) 221.0 mg/dL (66.0 - 200.0) 01/13/2023 10:01 HDL 62 mg/dL (40 - 71) 01/13/2023 10:01 Chol/HDL Ratio 3.5 (0.0 - 4.5) 01/13/2023 10:01 LDL ((H)) 130 mg/dL (1 - 100) 01/13/2023 10:01 Trig 143.0 mg/dL (0.0 - 150.0) 01/13/2023 10:01 VLDL. 29 mg/dL (5 - 40) 01/13/2023 10:01 PSA Screen 0.91 ng/mL (0.00 - 4.00) Patient notified - tv Normal [facility] CMP Standardon 01-13-2023 eGFR AA >60 Invalid Interpretation Code [facility] Comment on above: Performed By: #### 1 [id number], [id number], [id number] ####[facility] (DEFAULT)[address] [place] [address] eGFR Non AA >60 Invalid Interpretation Code [facility] Comment on above: Performed By: #### 1 [id number], [id number], [id number] ####[facility] (DEFAULT)[address] [place] [address] 99264 Albumin [Mass/Vol] 4.0 g/dL Normal 3.5-5.0 [facility] Comment on above: Performed By: #### 1 [id number], [id number], [id number] ####[facility] (DEFAULT)[address] [place] [address] 83487 Albumin/Globulin [Mass ratio] 1.3 {ratio} Low 1.4-2.6 [facility] Comment on above: Performed By: #### 1 [id number], [id number], [id number] ####[facility] (DEFAULT)[address] [place] [address] 55371 Alk Phos 29 IU/L Low 32-91 [facility] Comment on above: Performed By: #### 1 [id number], [id number], [id number] ####[facility] (DEFAULT)[address] [place] [address] 88835 ALT [Catalytic activity/Vol] 47.0 U/L Normal 17.0-63.0 [facility] Comment on above: Performed By: #### 1 [id number], [id number], [id number] ####[facility] (DEFAULT)[address] [place] [address] 81553 Anion gap [Moles/Vol] 5.5 mmol/L Normal 5.0-19.0 [facility] Comment on above: Performed By: #### 1 [id number], [id number], [id number] ####[facility] (DEFAULT)[address] [place] [address] 20258 AST [Catalytic activity/Vol] 35 U/L Normal 15-41 [facility] Comment on above: Performed By: #### 1 [id number], [id number], [id number] ####[facility] (DEFAULT)[address] [place] [address] 06078 Bili Total 0.9 mg/dL Normal 0.3-1.2 [facility] Comment on above: Performed By: #### 1 [id number], [id number], [id number] ####[facility] (DEFAULT)[address] [place] [address] 30482 Calcium [Mass/Vol] 8.9 mg/dL Normal 8.9-10.3 [facility] Comment on above: Performed By: #### 1 [id number], [id number], [id number] ####[facility] (DEFAULT)[address] [place] [address] 73959 Chloride [Moles/Vol] 108 mmol/L Normal 101-111 [facility] Comment on above: Performed By: #### 1 [id number], 9885005, [id number] ####[facility] (DEFAULT)[address] [place] [address] 46844 CO2 [Moles/Vol] 27 mmol/L Normal 21-32 [facility] Comment on above: Performed By: #### 1 [id number], [id number], [id number] ####[facility] (DEFAULT)[address] [place] [address] 68346 Creatinine [Mass/Vol] 1.06 mg/dL Normal 0.90-1.30 [facility] Comment on above: Performed By: #### 1 [id number], [id number], [id number] ####[facility] (DEFAULT)[address] [place] [address] 64527 Globulin (S) [Mass/Vol] 2.9 g/dL Normal 1.5-4.3 [facility] Comment on above: Performed By: #### 1 [id number], [id number], [id number] ####[facility] (DEFAULT)[address] [place] [address] 82487 Glucose [Mass/Vol] 107.0 mg/dL Normal 74.0-118.0 [facility] Comment on above: Performed By: #### 1 [id number], [id number], [id number] ####[facility] (DEFAULT)[address] [place] [address] 30789 Osmolality 277 mOsm/L Invalid Interpretation Code [facility] Comment on above: Performed By: #### 1 [id number], [id number], [id number] ####[facility] (DEFAULT)[address] [place] [address] 55690 Potassium [Moles/Vol] 3.5 mmol/L Low 3.6-5.1 [facility] Comment on above: Performed By: #### 1 [id number], 5949375, [id number] ####[facility] (DEFAULT)[address] [place] [address] 08012 Protein [Mass/Vol] 6.9 g/dL Normal 6.5-8.1 [facility] Comment on above: Performed By: #### 1 [id number], [id number], [id number] ####[facility] (DEFAULT)[address] [place] [address] 25606 Sodium [Moles/Vol] 137.0 mmol/L Normal 136.0-144.0 [facility] Comment on above: Performed By: #### 1 [id number], [id number], [id number] ####[facility] (DEFAULT)[address] [place] [address] 85819 Urea nitrogen [Mass/Vol] 21 mg/dL Normal 8-26 [facility] Comment on above: Performed By: #### 1 [id number], 1443265, [id number] ####[facility] (DEFAULT)[address] [place] [address] 89512 Urea nitrogen/Creatinin e [Mass ratio] 19.8 mg/mg High 4.6-16.2 [facility] Comment on above: Performed By: #### 1 [id number], 3204949, [id number] ####[facility] (DEFAULT)[address] [place] [address] 55282 Lipid Panel Standardon 01-13 Cholesterol [Mass/Vol] 221.0 mg/dL High 66.0-200.0 [facility] Comment on above: Performed By: #### 1 [id number], 7154824, [id number] ####[facility] (DEFAULT)[address] [place] [address] 14333 Cholesterol in HDL [Mass/Vol] 62 mg/dL Normal 40-71 [facility] Comment on above: Performed By: #### 1 [id number], 3963902, [id number] ####[facility] (DEFAULT)[address] [place] [address] 48744 Cholesterol in LDL [Mass/Vol] 130 mg/dL High 1-100 [facility] Comment on above: Performed By: #### 1 [id number], 0387380, [id number] ####[facility] (DEFAULT)[address] [place] [address] 29484 Cholesterol.total/ Cholesterol in HDL [Mass ratio] 3.5 {ratio} Normal 0.0-4.5 [facility] Comment on above: Performed By: #### 1 [id number], 4026717, [id number] ####[facility] (DEFAULT)[address] [place] [address] 65198 Triglyceride [Mass/Vol] 143.0 mg/dL Normal 0.0-150.0 [facility] Comment on above: Performed By: #### 1 [id number], 2408917, [id number] ####[facility] (DEFAULT)[address] [place] [address] VLDL. 29 mg/dL Normal 5-40 [facility] Comment on above: Performed By: #### 1 [id number], 0175266, [id number] ####[facility] (DEFAULT)[address] [place] [address] 29060 PSA Screenon 01-13-2023 PSA Screen 0.91 ng/mL Normal 0.00-4.00 [facility] Comment on above: Result Comment: [employer] Clinical System (Chemiluminescence) Values obtained with different assay methods or kits cannot be used interchangeably. Results cannot be interpreted as absolute evidence of the presence or absence of malignant disease. Performed By: #### 1 [id number], [id number], [id number] ####[facility] (DEFAULT)[address] [place] [address] 38580 Consent Formson 01-09-2023 Consent Forms [id number] [facility] Physical Therapy Note [id number]# 1.00OTGTIFF [facility] CT cervical spine wo conon 0 06-13-2022 CT cervical spine wo con [facility] [address] CT Scan Report Signed Patient: Jefferson Mabry MR#: [id number] : 1965 Acct:[id number] Age/Sex: 57 / M ADM Date: 06/13/22 Loc: [facility] Room: Type: [facility] Attending Dr: Tammy Sarmiento MD Copies to: Tammy Sarmiento MD Ordering Provider: Tammy Sarmiento MD Date of Service: 06/13/22 CT/CT cervical spine wo con: Neck pain CT cervical spine wo con 06/13/2022 9:57 AM SIGN AND SYMPTOMS: Left arm and hand radiculopathy TECHNIQUE: Multi detector CT axial slices of the cervical spine were obtained without IV contrast. Volumetric acquisition sagittal, coronal, and 3-D reconstructions were performed and reviewed. CT was performed with one or more of the following dose reduction techniques: Automated exposure control, adjustment of the mA and/or kV according to patient size, or use of iterative reconstruction technique. COMPARISON: 05/02/2022 3. FINDINGS: There is preservation of the vertebral body heights. There is moderate disc height loss at C5-C6 with mild disc height loss at C6-C7. There is uncovertebral joint spurring, right greater than left. C5-C6. No fractures or dislocations are seen. The alignment of the cervical spine is normal. The craniocervical junction and atlantoaxial joint are within normal limits. The prevertebral soft tissues are within normal limits. Atherosclerotic changes are present in the carotid bifurcations. The paraspinous soft tissues are within normal limits. The lung apices are unremarkable. CT/CT cervical spine wo con IMPRESSION: No fracture or subluxation. Degenerative changes are noted, greatest at C5-C6 as above contributing to neural foraminal narrowing right greater than left. This is similar to that seen on the prior MRI. Impression dictated by: Ramakrishna Dsouza M.D.06/13/2022 4:04 PM Dictation Location: [place] [address] Transcribed By: [facility] 06/13/22 1604 Dictated By: Ramakrishna Dsouza II, MD 06/13/22 1557 Signed By: 06/13/22 1604 [facility] Outside Recordson 05-29-2022 Outside Records [id number]#1.00OTGTIFF [facility] Coding Summaryon 05-11-2022 Coding Summary HTMLBase 64 EhbugueaQXe7aKk+PGhl YWQ+JH5NXFEeY32zzPVx fD0KO6iVGO3HBWSXBVPE YI8PKJ9ixII9IIxxY5Cw biAv JynnqOVxHC92PVb2VAZ4 jGsvWEdpsB7ihKVsM9t6 BtQiSF34lT93ICdsSVBe KoI0EtXfoswrcEIk Q7euRzPmeSEsAih+PHRh YmxlIHdpZHRoPScxMDAl QyXlwEakTY1dQw4jAVKq LWNvbGxhcHNlOiBj u6wxXOSdEQpsQA5xiDll E9MnkSS2MEOdp2s0Dz32 dHI+KBDhNST3rGebILrv b376KmUtw6jcKQF1 zXHtBOzhHXG3B92wa0E5 MAOxTXBhAVL5nOO3eK7w qJqxejgoP2FltOKmVsL5 KAJ5uHCwkL5hmPbx fwuixQ8vTbg+L03HYW2B PMOQZX8SKbv8D1HyHweu dHI+SX81PVSkYU03rYAi mYIfq5eabBj6LnBx WGKvZSU7gFomLAyrz7Uf FJAwP96zsJMmj1U5ZPPn mWkrkPPuKfCnjIV2zU7s ATgbrnwci5hwvixw Lhupn2vmgh45lB57F78z VUzuTJLcVSN3BYTlOXPl mFhqha5gwP0dDg0+IDxj m2mtb8zixNl6XcEh QZRoghVxoSjmILW2q7If Ze44Z6WjbBika5MeNih0 hw05aCWtz8O8iTC4AGhw ASCbwU8bKYbyTqW7 NCMkPgStdZ66eWSeROvy Jl9xdYdisVvhVB5hKAIr kwmhMNDygM5aDQAecGXp aPlpZY6nLPAhlapb m856UlGdMDZ2MSCqcRVd Z4MugY2lNwFxYXNwRWFv U8LuqBViZTvyX204IHrk LlZ8ICZsutZnB0Xo QEBcsScaXjL2h2R0Hz9Z x2KjcqnfZHC0UOkfVEL3 AtH1PwGaLdQ5N9XpMfz1 DZDztPqoHW4eQ7Cl IOSlympgrgrroGS5HUWx KTDmkV41xKVlFXyqMg8g g3Y0v402YZMnPDLfqL38 Eh6izPabLZSmkIBM tH5qvaqtw6pguglgHqKj OAYdVNr3KPj0UQAwcJjm UeJgSXA9RhT5RJJ2uTLw dX5vwNbwxepmrO2j Oyc+R60zeI7qNMH6BLO1 ckilJUKedqKcVC60QF68 V4OjZnuxdCUuzTD+PGRp apOamEvaEJ6zWySh e6dzs5MsWLzlZ7SuVVJc TMfjOop0SETlYVG5mTK5 gE2rDBUzKUkvl9C2oSH1 W6ZqnzRyzl0fi5ev SNVpQPngC96roCXsx2L6 OZTmvRF8UPBnfSkkQdHk fP89Rfx+BOGqnJqed3Qm Ifqpy0tuw0vwfWb5 IjMwJSIgdmFsaWduPSJ0 d8WmHw08Z88sLQomOZFx HTMdATEcETJysKzalo1s iH7nBe3+PGNvbCB3 xGD6vU1lTEYlBnM8MPfe Y368QnUzbFCfUiigd3wk k4sucMe6OoUdEDCgemFz kKrmFRY3s2OqGe76 I39hRBzuKLHdVRKnMFCt MRPyiToebb1htQ6sFk0+ QX6ww4hlnx63qC30zOL+ SPGmCIE0oCduYUhu HUIsrH5wCVphJrI7OXFb HrDxqQ36mOMeSVoxPd4a fVlwaGnzFT3kDVRjllzd v652QbBxi9qeZVFq oILvEUqeMML7W59rw7G5 YKYlLVFxRCX6aCP8gA5p bGlnbjogbGVmdDsgdmVy hOyiDTjyTZqhQ558 IHRvcDsnPlBhdGllbnQg ZyGaXUf5F0YbUsx1RJYg dQgbDC6rxOQcVAkrFo6y jCejfOheCQ2gIHFl edzmb910GoAte1rxUEUe wFLlAQpqFFW7T32ho6I5 FICtGBQuBJS8aQE8oA3f bGlnbjogbGVmdDsg ltRicIftSTuqPHveF065 IHRvcDsnPkJpcnRoIERh gHN1RK84BN99fEOxo4A0 dFM1D0GoOGCcevtj cukevZA0KXOsHTIunT92 Ql6viRxpXx0xVLTdLWF7 YVJxoYMnS2PqlZ2pRcEc IACzVJJkR1PwzLTo NKnoF223DGzgMpL7MVHf rwIwU4HcYCBxxZwpHdS7 w0T6Vg2SP9O4QQ73KM27 tRAfs6A3kEL7G1Eo YMFmhiwitfnedTX1JQDg YIDnsD51Id2qwHdzIl6f GJInXQV1SKQmpCDiT7Tx oJ9cYmHtMJVgWXYi C5PkfTPkCBkrY224ZPrm OjO1FWEjrfBmU4GsIHOy hWbwRuS0m9B9Pj7XCVq1 FM47LI81oWLzu2C2 pBH3K5XjFREggelubjuy oBO9MPImIDSblW90Nf2p cIfaPt0wBYIbJGE6OXGu cBZbA3MraP4bTmEf UQJzITBaE9NkgMUwZAmn S600DTqaYfL7ROLwzcJn Y0PdIHRbuOsaVnU2d7Z1 Pv9YLYRpBG13JTY2 vEW6QT07YP36A4IrRjlp dGFibGU+PHRhYmxlIHdp ZHRoPScxMDAlJyBzdHls DA0qDw4yOEFrYCKh oQohwHCcVdQkb1fwNEMl KNtrHC3wlMwzN4IllOR8 FKVhk3f5Ih56X11tR9By dXA+QNNoaCH5yRU6 zU2dWpGpFnQ3HUxhB225 MpDgoAGwNvexr2yea1gf uYu6UwZ0WFBeyrWhtIvf MSI9e8ZdFj18L21z IHdpZHRoPSIxNSUiIHZh jSdusk2atY8rQv9+PGNv pOT8sRA3vJ8uEwFwJdT1 YEgjG648XkJlgPVu Wagfe5zac3qchUk4WbRx FLLgoyCvuOmaLFG2q8Hy Tm77A2SdoCgkw2EzDmj9 dp22yRLjd6O2iOM3 B3RxAKRgogfgtYLfwNff PS6vNYIpwqgyTVElyQ0v NSXyQ3b3VzPjFuG9FGce L4HmttL9XBQgnVSg IApiYWL8L07jo8B7QVTu YVPjHQG9lXB4nZ7jqRfb bjogbGVmdDsgdmVydGlj NLxmFDrjA545HRXy iAolVWUbzO3sIQBvdTWj jRqgIE9mHNWkaxmaKwOV TVBCRUxMLCBKRUZGUkVZ INR4A2GcZiw5LSKb lTpzYX1jdKGiIEkkJq4w uEiyfBpjEZ3tBNNjycur OEJntL3wIKIxfZTrqYln YM7bVSMtcywyb752 WgMgSKE9ICQamAKoO5Yr vR9nHpEcEPIyIANhM2Dk dGGpRAxoW630EOgaXqQ9 ZMBgfhVpJ1IpSBFc iQtqZeG8z8I7Nh2jFF0b XN9lCXP5KN38JY36bIUw g2V2eXA6W6QgIMYixwvg utnkuKX3IMHsOZYe oT86iIUlRYfxUm1ea1Y5 m255EEZcRSArvE87Nu6q kPmzYITmzTGArV3tsjlp d5wghngtUhEsEWSd TEf5WMk0BLNkyKheMwKx SWT9XtD5EYZ5oTDmpA6e nKufsqornK5iGep+NTcg ORBfjrF2C1UyAkx2 KLTksExnBJ5rxSAaXArv Rz5dvYrnlSpxKI1eGKMt behvUOYpuY8dYJNqcPCq iTxlCO2uIZZxqttx r374PpGpXBW7TMJbyGNz H4ZjuG1fCrUyIYDiLGSn K1AmmUSrAJkoD812JCng AvA0QFJdtxOtP1Pw URDlgOcxEsF6y8T8Lp4R ZCcKQW67SU90oQTmc4B8 gAN7C0EvDDIgqmxeuodu lNP0PYJaJQCteI92 uPQpYJevYv1gt1P3t183 OAMjEKIzbL18Af0iqSrd UDUmwAFZtR2hujnud9yr cjogIzAwMDAwMDt0 RJx9CUEwlWflFvBwANS6 LdD6BNB4bQSgzJ2geWky wtvdqY7dKlg+UmVjdXJy uP5vSA63vHYvgJic nhO6B6XrOtnjaZL+PC90 BXDfFU67bRZlkHEpu1zg xOc8GzUdASZuGHD4oMey SLste8XgHSWeH80f oFMoa4U8OSHowIlaqABu IeLhzEL9qP9gRIomrfjm u3seqdjhQbzxt0qeem47 oI44W37jYYguFLPz SIRbNEFxDLZeoRucib0w bF8qQl5+NRJtrRD2cMS3 yR2xWjJiAxW7UWesI054 HgCciOChKfvmy1rv r9rmvDc4UkDjQNQxilFv gDrqZAB4o6JrDu94D17s IHdpZHRoPSIyMCUiIHZh oKklmj9lrJ3vKl8+ LQ8uq9eobt87rG33jSG+ ZYNrSQV9kYgeSHgdIVBs aU6hRUweIxB0CQMbNyJi hY82wSLvRHjcZh4p mVhmyRhaBX8bIZZmpmff v853NcNbl9ucYURftGDc MBhzSUA0T99tr8C6ENCv JRGoLWQ9hNM8vT9h bGlnbjogbGVmdDsgdmVy bCshLGygRLsoH766AVDv bWghAwIxlIEcO4rejlLU FY1wXwmujZE+PHRk JIN4gUtbMTktHBIwvX2d GWUuQ8j9CnKfZbH8EZfn M8FtqtV1NWIlfIRwBAPg nMLNwN6nceuqk5cd cfldUoLsMNCaBIy8KEq1 ESFhcGelPwFeCQM7IvW0 FYA0wUZssQ6abVxaqzur vN3jVbs+RklOOjwv dGQ+LPKuCWF5yKahLUxn VCBloK7wNSOkX8z8RgYw OdY8ARkcX6GzunW3YUBz pFTgPWGnaQADqI4l tulad1cdnfyuTpZtITEz SGq7AUc8ZVAibUjkJoYl GOJ2QmQ4PFU6xVHapK5e pUtqmlzusH6lLfm+ TVJOOjwvdGQ+PHRkIHN0 kWpqDMxkKXGxvL4oQNLz W2a5DfJzJyI7HSbxR5Ht ydW1HVAnaRLkLVTd dZVRdP0dbihfd2xbwwww PrYcTJTtQDr4GAh8JRZo uQasNnSoZLM6CtV0PLA2 yDGtcA2yeUmbvufl bJ8qCve+WOU4XTV5AR93 DJ29L1UtPipykMCqpKQ+ PHRhYmxlIHdpZHRoPScx SRCuVfIhmLhqMP0i Ym9 (more content not included)... [facility] Reminder Messageson 05-06-19 23 Reminder Messages - From: Carrie Gonzalez APRN, CNP To: [facility] ([facility]); Sent: 05/04/2022 14:24:39 EDT ! 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 - From: Pepito Rosales DO To: [facility] ([facility]); Sent: 05/05/2022 07:01:35 EDT Show up: 05/05/2022 07:01:00 EDT Subject: RE: Results Follow Up spurring at C5/6, worse on the right. I recommend he see neurosurg. Patient notified - tv [facility] Coding Summaryon 05-04-2022 Coding Summary HTMLBase 64 AiiuprxpBDx4nBe+PGhl YWQ+LU9SFWKkN32yqFTz qD8JO0eVGZ8LYWVSYHYD WI0MTY3ruCV8FRdeT6Pc biAv WlbafCQiJI04KJu7MLF3 rDpxPIqsjR6spDPbM9o9 ApOcTF38aA22OXvnJYIu KqX5JjRlcebylVCp J7zxKjHjaPCxHqc+PHRh YmxlIHdpZHRoPScxMDAl AmKcnAlsTB6qHa8hVRYx LWNvbGxhcHNlOiBj z1gfIINmFNohEW4rpPtn C7OtrIW6LVHfc3j3Or46 dHI+YRZzRZK2nNehTGcq u545VsXej1fzTHC0 xOCwKYuoNMF1U01gy8G9 CKSdLDPeWRA6zPA6eA9e cXeyvistD6AuvDFkPdY4 MNT4yMGcyV3obKxo wiqneG5uPjm+N26LKW1S JZZVML3FEiv9L2IlKshf dHI+EK75ZIDvFB19ySOu sKEjl0bedKx9VrMp QGBdUNC4vWbcHLjav1Ul ILKaW67wnRPwt2P2VYUy kDfohJMaQvMzcUW9yD8h JBiswktxq3ssoifq Wgrng1jtyy64gJ98F99a OOnzPRVvVMR1HDNqQJTi uLtgsp0llZ2yBw5+IDxj p0uic2ucuCi0VvPs MNFvzoGpeWgnGZO2a0Hn Vu81B3FaeDlzr2MoOse4 ae52kPUyc8O9lUQ2THro UYWxjJ3kIMvvGpJ8 YXPjSoIouI23iLUbKVhg Vr0yrDnvrXokZN5lBHJs ooymGYZieR2lEDWiyXNa pPwoXT8zOBKdsymx u360IyXuTYS2YFSywQVs P6EnjL4uLxWaCADcMMTx D8EwmYIkPRjuU478NIfa QdT9FPKjwfIhG4Ac MZBshPgcZzN8x8S5Bc8N q3LmlvouVFS9NLukWOQw DoDwQaVwKyL0X2OyXdn5 MYQwrKnzRL3cP3Uw LSQmkutpntfygNW3CLEn YBPbtV39lZNqBZjsFw2r w6N5c388LEDwEPObmC19 Tf4diTeiHEItkZKA iC1cyvjat7iexkgtJjGg VRIoOCi5JFp8UBBkrBxu RwRyLDY5NmY5LDW9qQRq xR3ciTncgkhgwR6j Oyc+N87glB1pZJN9JSW6 glamUKJvooTsMI52XV95 F9HzCsolvCDgvPL+PGRp qcYnrVhbAK4dPbZf q4mdw2ZnTXcnB5SfNCGi JLfnRpo5PMBaDWH0rSP7 mM2aNDXoQQfau0C4wBZ1 L6JrhrGdtx3wx1wc MDMkBKlwU43dpQHep8Q3 KLOihNC7YMRimUlaKmUo mD43Qix+KZIljNyud4Ac Daxbl7bnj3dhqZh9 IjMwJSIgdmFsaWduPSJ0 o2MxWa62C22dYCcmAVKn UWGgBLHxPAHlwQnrio6o kO9hNx0+PGNvbCB3 kBN8tY8lGSUxGnI5WYew M400KkCawCJzBembz5ld l3jrzRq0RnLcEQUpgaOl dDtjPMR2c2NdJu15 H57oZQquUIHrDXVgOPTl YPNpgEkmmj8bwJ7pGy0+ YL2hx6ueop75wD66kNE+ VILxLCK7aSxrSPuh PREvvV0tILhdKlB1ZDFy LoNktH43hJBgYHpdZp0b fRbigAhhLT2rWVNzglla l251GuRum2hdXZTg vONrLKbhRVF1Y44ia5L5 YADlTEMrANC3fJF5uO1d bGlnbjogbGVmdDsgdmVy tUalEStrDRspN661 IHRvcDsnPlBhdGllbnQg JqObAQq8I1FqKwd9PMDi iPgsPY8fpWHsVOpvIu1q uSbxnKgmBZ9fQEKp yqnao104CkZyq6nzJCRp oKJsFLurJZL5Q13tr0N7 REYbLCWoTGE2kOI4tO4t bGlnbjogbGVmdDsg isQyfBrjNXixIDuwO275 IHRvcDsnPkJpcnRoIERh tXS3BQ38FF73tQYex9Q6 uVQ2H2YdOYWmdxdi zykarVN9APCgYFOgdW53 La8fpSzwNg2iBMLhPNK6 HBWskXLvL5PzsW7kKbCq TTAiRJFkC1ByfMHn DTtbX161IBddKiG7AQUp ryLuH1NfANJblAilOhB4 z2B8Af7GF4H0IT70BT66 fRUfb3S7dPU6Q3Lo EKNerbxvkvcsgTD9ZNCh NUGudU37Le6hnUupVr6n TWFfCKV7BGIblZSyU8Kd pF8uZdZiUWSaPFBi M9BdoBArYDjlB329EDgr HxV1AJDgzdStG4RaPNPj fYgqJmA0j1P5Sn0JXKi0 HX87TV03hEMig7E5 gUW4L1NzGFRfuingruqq aXB8LZXsYCFdnH47Bo1c kIrtIm0tHKZlTQH8BCLy mKOaB9SgzS0cTpFb UPFsZLExH7FwtJLnPNpr I906FJrdVeZ8VAFrsiVg C1QfTVXbgMgfXtZ6d6E8 Hr4IGMZsCM05BTB9 aYI6EL34ID70C1BkXyrq dGFibGU+PHRhYmxlIHdp ZHRoPScxMDAlJyBzdHls AX3mTn8fPDOyCVDg nZnjpOIwCaIxb1ceXQAy FLbeLI3tnBnbD8WbhIJ3 TDFis7r8Gt14E65bW3As dXA+LLIiqSU6kKF9 bG2kNtJcRqD5NHawO860 NnJutSPvVkjzk1gqg4xw mSl7QaO6UBQtbzKqqBie OBW7d7XbMu62T33n IHdpZHRoPSIxNSUiIHZh zHarzt9osZ9oUr6+PGNv eFZ7hXB2yS7hSfGcTnJ1 JAmgH181ZkBwgPQu Uyuqo8vti5hhjFu6JhBp MZIbcyBstVkqQGG9o8Sj Uy68T8GqmQazh7DxRte7 da14wKSsj0R2pPO4 B8OnVHWrwyyhsAOdcQxx NZ3fUGJxiukuPCRctI9h EKTiS5j2HeAwBlU9BFit P3CwglY1GVZarBZo SPcqIWD1G63kt0B2SUJe KLAyUNI1zAB6hD0amQgu bjogbGVmdDsgdmVydGlj EKgdMBtiJ945CZDq bUwaWAWgyQ9dKMNhtHQn oVlkMT1oVFAnjiysXuXN TVBCRUxMLCBKRUZGUkVZ XIB9Y6GsYjc2QDZt qPtxRX7jfMHkZMczPg6s yZrnfWfqGJ0uDYMjeten GXKgnB1oMGQcrYVrjQeh VC9aNCCecrubv739 WpWhEMV2CWGptCLxJ8Pb xS2yQnWcJGEhJDFtT4Yh pAVbPJojL404PNarCpU4 SCIbmnWqG1ChFZCr eRvsVqP4j3W1Vo0rSC0u XU9hCVM7PL69MA41wFPq s1K2oQZ7R7FxEOEdbivi ufagzKS0VOFoMQQs vY23iGArPYviDw9af0P5 z527BHUaKGRaaG25Mc3q nTzrMVOpdMUOpM3mgajy p7djzvtgQbTjIOWp VCp5OGo6UDJucZhvSuOh MWA9TbN3NEM6iSKkxW8u lBfslkliwQ0dHku+NTcg ZJIomvF6Y7GfXfg4 SFUguJruNU7cfNVbIUxf Kb2uoGjniZliUL7lULGk wwxaAZIuoN0dKENymKWx cIinXS4sPABjsvav q492QtVlTQD4QJZzrCPo H8QqiG6rBiZwASAzQHXk C2KaxTGqTJgpL231OCjy EfB4CQHhlrSoE8Ma KMWufNbiYhH1b8J5Qd0X UGnWIM14QZ13kDXwd6E0 pPN4T0KkQTPrjfcrrlhb zRC3FKJfZVDijI36 hIUvGNfeDn7bg5F8w680 NGBoKYImlS52Nx5wgEgi CAIjqNLOvO7cozuyt2vb cjogIzAwMDAwMDt0 DUn2NUOafJliPnLnKOS6 EyM2TCD8xHWgrV4dmRep oqrbhK5fReg+Q2F5K9Nj PjwvdHI+WE11MVTm DB60qNCsyCIhm0rjeMa9 ScPtYRXiZGS4iUjbKHkx g4QnOWQrV81nyCKaz6L0 IGNvbGxhcHNlOyBl jOP4bW4oVVvukahil9wr omghCvmqd0smft71zY82 L18eNJgtWLQmJEJaFCWi RAIduAeeyk4wcC0w Ii8+VHJvyJK3jFQ7wK3p EqWjOzG5XUhsL730NjMk vERaKktfs8kor8ujpZc2 IjIwJSIgdmFsaWdu BQK6k5OlDx52A05xOLjm ZHRoPSIyMCUiIHZhbGln cx9dtD3cYs2+RQ4xt4xc vl41hZ11dRX+PHRk EBA0nEmcHZzsWZBueS0n ZUrqWkY7NLJiClXglY03 iVNpQBjjWc0riYespHlq TD3jSBXbytyrb454 VdHae2plJQRthFMtKLrp CAA7U08li0L2KNCaSZBo ASW6pYG5tH4wpXvgzwav bGVmdDsgdmVydGlj DGzuHVrzS800SPZboEqe KqMsmJXlK4enrcEOQJ4b OjwvdGQ+SGIqVMM8yWri QNgdHYXkhN5bNRWd X1p6MpGqRyX4KNerT9Zi auO8ZTPfaHLtKXKwyAJB gT2djhdqf1ipfiysTnQe RQUlRGr0OKk1ZSQo sEjvFnOoWAP0CgS8WUY5 pKRzoW6vbQsogbvmqA3a Oyc+RklOOjwvdGQ+PHRk GTD1oKdjIDdoJDRu cR5aMQTdC9y6UmGeCeV8 WWjcY5MzbvX5BGPmoNFs TRNwmHZTcJ6vfjoea5hx cjogIzAwMDAwMDt0 QAx8PLKtiXpqUpFkOOD3 EaP9MPA3hWLpmP1ikSqb ditynV1vWgx+TVJOOjwv dGQ+HHDfRSZ1rKcr EBdpKUEyfR6kAPHrG1b6 XyYsDnF8SCdcB9LkoeI3 EOElqCWoJHVzlZHShO4u isorj9rryjosCdHa CZBbUWh6TXg6NRBchWve MhYfUIO0EsY4TFJ6uYKk uS3vmRgtonxasV9zKgg+ OJV9GIZ6PC57LR48 H8CyJpnqeWTlyMO+PHRh YmxlIHdpZHRoPScxMDAl LrPvqUmlAQ2tXg5gKWHq LWNvbGxhcHNlOiBj b2x (more content not included)... [facility] 05-04-2022 Outside Records [id number] 3[facility] - MRI Report [id number] #1.00[facility] Cervical w/ + w/o Contraston 05-02-2022 MRI Spine Cervical w/ + w/o Contrast EXAM: MRI Spine Cervical w/ + w/o Contrast HISTORY: POLYARTHRITIS. Patient complaining of bilateral shoulder, arm, hand pain, and numbness since summer 2021. COMPARISON: None. TECHNIQUE: Multisequence, multiplanar MRI studies of the cervical spine include heavily T2-weighted STIR sagittal scans, and postcontrast enhanced images obtained following intravenous ProHance administration. FINDINGS: The cervical vertebral segments are intact, appropriately aligned, and demonstrate uniform and normal internal bone marrow signal. There is mild narrowing of the disc interspace C5-C6, very subtle bulging of the posterior margin of the intervertebral disc C4-C5. Cord signal character and configuration is normal. Craniocervical junction structures are normal. Axial images from C2 to C4 showed no discogenic or degenerative encroachment centrally or laterally. Minimal non-encroaching disc bulge seen C4-C5. At C5-C6, minimal endplate degenerative spurring present, uncovertebral arthrosis present bilaterally more severe on the right noted. There is moderate to severe right foraminal narrowing. No other discogenic or degenerative encroachments are identified. The included cervical soft tissues and airways are grossly normal. I do not identify abnormal enhancement of the spinal column, spinal cord, or extramedullary intradural tissues. IMPRESSION: Minimal degenerative changes cervical spine, including non-encroaching disc bulge C4-C5. Endplate spurring, uncovertebral arthrosis C5-C6 present more prominent on the right such that there is moderate to severe right foraminal stenosis without high-grade canal or left foraminal narrowing. No abnormal enhancement of the cervical soft tissues, cord, or spinal canal contents. Final Dictated by: Henry Dodge Dictated DT/TM: 05/03/22 10:27 Signed (Electronic Signature): Henry Dodge 05/03/22 11:47 a Technologist: EVERARDO [facility] 04-24-2022 Outside Records [id number] #1.00OTGTIFF [facility] Vital Signs Date Time Vital Sign Value Performing Clinician Facility 05-24-2022 10:40-0400 Body height Tammy Blades Other [facility] Other 05-24-2022 10:40-0400 Body mass index (BMI) [Ratio] 26.73 kg/m2 Tammy Blades Other [facility] Other 05-24-2022 10:40-0400 Body weight 82.1 kg Tammy Blades Other [facility] Other 05-24-2022 10:40-0400 Diastolic blood pressure 68 mm[Hg] Tammy Blades Other [facility] Other 05-24-2022 10:40-0400 Systolic blood pressure 128 mm[Hg] Tammy Blades Other [facility] Other Encounters Encounter Date Encounter Type Care Provider Facility Start: 02-10-2023 End: 02-10-2023 ambulatory Pepito Rosales Facility:[facility] Start: 01-13-2023 End: 01-14-2023 ambulatory Pepito Rosales Facility:[facility] Start: 01-02-2023 ambulatory Pepito Rosales Facili ty:[facility] Start: 11-20-2022 End: 11-21-2022 ambulatory Pepito Rosales Facility: [facility] Start: 10-02-2022 End: 10-03-2022 ambulatory Pepito Rosales Facility:[facility] Start: 06-19-2022 End: 06-20-2022 ambulatory Pepito Rosales Facility: [facility] Start: 06-13-2022 End: 06-13-2022 ambulatory Pepito Rosales Facility:[facility] Start: 06-13-2022 End: 06-13-2022 ambulatory DO Pepito Rosales Work Phone: [facility] Work Phone: Start: 06-13-2022 End: 06-13-2022 Patient encounter procedure DO Pepito Rosales Work Phone: [facility] [address] Work Phone: Start: 05-24-2022 End: 05-24-2022 ambulatory Tammy Sarmiento Other [facility] Other Start: 05-24-2022 Office outpatient ne w 45 minutes Tammy Blades [facility] Start: 05-10-2022 End: 07-20-2022 ambulatory Pepito Rosales Facility:[facility] Start: 05-02-2022 End: 05-03-2022 ambulatory Pepito Rosales Facility:[facility] Start: 04-25-2022 End: 04-26-2022 ambulatory Pepito Rosales Facility:[facility] Start: 02-15-2022 End: 02-16-[address] PEPITO WEINBERG Facility: Procedures Date Procedure Procedure Detail Performing Clinician Start: 06-13-2022 CT cervical spine wi thout contrast DO Pepito Rosales Work Phone: Payers Date Payer Category Payer Self-pay [id number] 1965 Unknown [id number] 2.16.84 [id number] 1965 Unknown [id number] 2.16.8 [id number]. 1965 Unknown [id number] 2.16.8 [id number]. 1965 Unknown [id number] 2.16.8 [id number]. 1965 Unknown [id number] 2.16.8 [id number]. 1965 Unknown [id number] 2.16.8 [id number]. 1965 Unknown [id number] 2.16.8 [id number]. 1965 Unknown [id number] 2.16.8 [id number] 1965 Unknown [id number] 2.16.8 [id number] 1959 Unknown [id number] Unknown O [id number] Unknown [id number] 2.16.8 [id number] Social History Date Type Detail Facility Sex Assigned At [facility] Other Start: 1965 Sex Assigned At Male F [facility] Clinical Notes 02-15-2022 to 02-26-2023 Note Date & Type Note Facility 02-26-2023 Note - From: Janeen Dick RN ([facility] ([facility] To: Pepito Rosales DO; Sent: 02/26/2023 15:32:56 EST Subject: FW: Medication Management Due Date/Time: 02/27/2023 15:23:00 EST Caller Name: JEFFERSON MABRY; Caller Number: , M Patient matched by Janeen Dick RN on 02/26/2023 15:32:40 EST From: [place] [address] [facility] To: Pepito Rosales DO Sent: February 26, 2023 2:23:29 PM BOOK CLEANER Subject: Medication Management Due: February 27, 2023 12:02:36 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 On Hold Pending Signature Drug: clopidogrel (clopidogrel 75 mg oral tablet), TAKE 1 TABLET BY MOUTH DAILY Quantity: 30 tab(s) Days Supply: 30 Refills: 3 Substitutions Allowed Notes from Pharmacy: Dispensed Drug: clopidogrel (clopidogrel 75 mg oral tablet), TAKE 1 TABLET BY MOUTH DAILY Quantity: 30 tab(s) Days Supply: 30 Refills: 3 Substitutions Allowed Notes from Pharmacy: On Hold Pending Signature Drug: sertraline (sertraline 25 mg oral tablet), TAKE 1 TABLET BY MOUTH ONCE A DAY Quantity: 30 tab(s) Days Supply: 30 Refills: 3 Substitutions Allowed Notes from Pharmacy: Dispensed Drug: sertraline (sertraline 25 mg oral tablet), TAKE 1 TABLET BY MOUTH ONCE A DAY Quantity: 30 tab(s) Days Supply: 30 Refills: 3 Substitutions Allowed Notes from Pharmacy: Submitted: Order:clopidogrel (clopidogrel 75 mg oral tablet) 1 tab(s) Oral Daily Qty: 90 tab(s) Refills: 3 Substitutions Allowed Route To [facility] Signed by Pepito Rosales DO 02/26/2023 15:41:00 EST Submitted: Complete:clopidogrel (clopidogrel 75 mg oral tablet) Signed by Pepito Rosales DO 02/26/2023 15:42:00 EST Not Approved: New Rx to follow clopidogrel (CLOPIDOGREL 75 MG TAB 75 Tablet) TAKE 1 TABLET BY MOUTH DAILY Qty: 30 tab(s) Days Supply: 30 Refills: 3 Substitutions Allowed Route To [facility] From: Pepito Rosales DO To: [facility] Sent: 02/26/2023 15:42:36 EST Subject: FW: Medication Management Submitted: Order:sertraline (sertraline 25 mg oral tablet) 1 tab(s) Oral Daily Qty: 90 tab(s) Refills: 3 Substitutions Allowed Route To [facility] Signed by Pepito Rosales DO 02/26/2023 15:42:00 EST Submitted: Complete:sertraline (sertraline 25 mg oral tablet) Signed by Pepito Rosales DO 02/26/2023 15:42:00 EST Not Approved: New Rx to follow sertraline (SERTRALINE HCL 25 MG TABS 25 Tablet) TAKE 1 TABLET BY MOUTH ONCE A DAY Qty: 30 tab(s) Days Supply: 30 Refills: 3 Substitutions Allowed Route To Pharmacy - [facility] 02-26-2023 Note - From: Unique Bravo ([facility] ([facility] To: Pepito Rosales DO; Sent: 02/26/2023 15:34:16 EST Subject: FW: Medication Management Due Date/Time: 02/27/2023 15:23:00 EST Caller Name: JEFFERSON MABRY; Caller Number: Toya , M From: [place] [id number] [facility] To: Carrie Gonzalez CNP Sent: February 26, 2023 2:23:52 PM BOOK CLEANER Subject: Medication Management Due: February 27, 2023 12:05:03 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 On Hold Pending Signature Drug: metoprolol (Metoprolol Tartrate 100 mg oral tablet), TAKE 1 TABLET BY MOUTH ONCE A DAY Quantity: 30 tab(s) Days Supply: 30 Refills: 3 Substitutions Allowed Notes from Pharmacy: Dispensed Drug: metoprolol (Metoprolol Tartrate 100 mg oral tablet), TAKE 1 TABLET BY MOUTH ONCE A DAY Quantity: 30 tab(s) Days Supply: 30 Refills: 3 Substitutions Allowed Notes from Pharmacy: From: Pepito Rosales DO To: [facility] Sent: 02/26/2023 15:41:34 EST Subject: FW: Medication Management Submitted: Order:metoprolol (Metoprolol Tartrate 100 mg oral tablet) 1 tab(s) Oral Daily Qty: 90 tab(s) Refills: 3 Substitutions Allowed Route To Pharmacy - [facility] Signed by Pepito Rosales DO 02/26/2023 15:41:00 EST Submitted: Complete:metoprolol (Metoprolol Tartrate 100 mg oral tablet) Signed by Pepito Rosales DO 02/26/2023 15:41:00 EST Not Approved: New Rx to follow metoprolol (METOPROLOL TART 100 MG TAB 100 Tablet) TAKE 1 TABLET BY MOUTH ONCE A DAY Qty: 30 tab(s) Days Supply: 30 Refills: 3 Substitutions Allowed Route To [facility] Signed by Pepito Rosales DO [facility] 02-10-2023 Note Patient Education Ma terials Follows: Earwax Buildup, Adult The ears produce a substance called earwax that helps keep bacteria out of the ear and protects the skin in the ear canal. Occasionally, earwax can build up in the ear and cause discomfort or hearing loss. What are the causes? This condition is caused by a buildup of earwax. Ear canals are self-cleaning. Ear wax is made in the outer part of the ear canal and generally falls out in small amounts over time. When the self-cleaning mechanism is not working, earwax builds up and can cause decreased hearing and discomfort. Attempting to clean ears with cotton swabs can push the earwax deep into the ear canal and cause decreased hearing and pain. What increases the risk? This condition is more likely to develop in people who: ? Clean their ears often with cotton swabs. ? Pick at their ears. ? Use earplugs or in-ear headphones often, or wear hearing aids. The following factors may also make you more likely to develop this condition: ? Being male. ? Being of older age. ? Naturally producing more earwax. ? Having narrow ear canals. ? Having earwax that is overly thick or sticky. ? Having excess hair in the ear canal. ? Having eczema. ? Being dehydrated. What are the signs or symptoms? Symptoms of this condition include: ? Reduced or muffled hearing. ? A feeling of fullness in the ear or feeling that the ear is plugged. ? Fluid coming from the ear. ? Ear pain or an itchy ear. ? Ringing in the ear. ? Coughing. ? Balance problems. ? An obvious piece of earwax that can be seen inside the ear canal. How is this diagnosed? This condition may be diagnosed based on: ? Your symptoms. ? Your medical history. ? An ear exam. During the exam, your health care provider will look into your ear with an instrument called an otoscope. You may have tests, including a hearing test. How is this treated? This condition may be treated by: ? Using ear drops to soften the earwax. ? Having the earwax removed by a health care provider. The health care provider may: ? Flush the ear with water. ? Use an instrument that has a loop on the end (curette). ? Use a suction device. ? Having surgery to remove the wax buildup. This may be done in severe cases. Follow these instructions at home: ? Take nbek-zcd-ncfmmff and prescription medicines only as told by your health care provider. ? Do not put any objects, including cotton swabs, into your ear. You can clean the opening of your ear canal with a washcloth or facial tissue. ? Follow instructions from your health care provider about cleaning your ears. Do not overclean your ears. ? Drink enough fluid to keep your urine pale yellow. This will help to thin the earwax. ? Keep all follow-up visits as told. If earwax builds up in your ears often or if you use hearing aids, consider seeing your health care provider for routine, preventive ear cleanings. Ask your health care provider how often you should schedule your cleanings. ? If you have hearing aids, clean them according to instructions from the camera operator and your health care provider. Contact a health care provider if: ? You have ear pain. ? You develop a fever. ? You have pus or other fluid coming from your ear. ? You have hearing loss. ? You have ringing in your ears that does not go away. ? You feel like the room is spinning (vertigo). ? Your symptoms do not improve with treatment. Get help right away if: ? You have bleeding from the affected ear. ? You have severe ear pain. Summary ? Earwax can build up in the ear and cause discomfort or hearing loss. ? The most common symptoms of this condition include reduced or muffled hearing, a feeling of fullness in the ear, or feeling that the ear is plugged. ? This condition may be diagnosed based on your symptoms, your medical history, and an ear exam. ? This condition may be treated by using ear drops to soften the earwax or by having the earwax removed by a health care provider. ? Do not put any objects, including cotton swabs, into your ear. You can clean the opening of your ear canal with a washcloth or facial tissue. This information is not intended to replace advice given to you by your health care provider. Make sure you discuss any questions you have with your health care provider. Document Revised: 05/11/2020 Document Reviewed: 05/11/2020 ElsePrepared Response Patient Education ? 2022 [employer]. Infectious Disease Upper Respiratory Infection, Adult An upper respiratory infection (URI) is a common viral infection of the nose, throat, and upper air passages that lead to the lungs. The most common type of URI is the common cold. URIs usually get better on their own, without medical treatment. What are the causes? A URI is caused by a virus. You may catch a virus by: ? Breathing in droplets from an infected person's cough or sneeze. ? Touching something that has (more content not included)... [facility] 01-30-2023 Note - From: Unique Bravo ([facility] ([facility])) To: Pepito Rosales DO; Sent: 01/30/2023 16:11:01 EST Subject: FW: Medication Management Due Date/Time: 01/31/2023 15:40:00 EST Caller Name: JEFFERSON MABRY; Caller Number: , [facility]rs 01/30/23 Last filled: 01/16/23 Quantity: 36 Last appt: 11/20/22 Upcoming appt: none CSA: Patient matched by [facility] on 01/30/2023 16:07:31 EST From: [place] [address] [facility] To: Pepito Rosales DO Sent: January 30, 2023 2:40:13 PM BOOK CLEANER Subject: Medication Management Due: January 31, 2023 12:07:09 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 On Hold Pending Signature Drug: sertraline (sertraline 25 mg oral tablet), TAKE 1 TABLET BY MOUTH ONCE A DAY Quantity: 30 tab(s) Days Supply: 30 Refills: 3 Substitutions Allowed Notes from Pharmacy: Dispensed Drug: sertraline (sertraline 25 mg oral tablet), TAKE 1 TABLET BY MOUTH ONCE A DAY Quantity: 30 tab(s) Days Supply: 30 Refills: 3 Substitutions Allowed Notes from Pharmacy: On Hold Pending Signature Drug: clopidogrel (clopidogrel 75 mg oral tablet), TAKE 1 TABLET BY MOUTH DAILY Quantity: 30 tab(s) Days Supply: 30 Refills: 3 Substitutions Allowed Notes from Pharmacy: Dispensed Drug: clopidogrel (clopidogrel 75 mg oral tablet), TAKE 1 TABLET BY MOUTH DAILY Quantity: 30 tab(s) Days Supply: 30 Refills: 3 Substitutions Allowed Notes from Pharmacy: On Hold Pending Signature Drug: ALPRAZolam (ALPRAZolam 0.5 mg oral tablet), 1/2 TO 1 TABLET Oral BID,PRN:IF NEEDED FOR ANXIETY Quantity: 36 tab(s) Days Supply: 0 Refills: 0 Substitutions Allowed Notes from Pharmacy: Dispensed Drug: ALPRAZolam (ALPRAZolam 0.5 mg oral tablet), 1/2 TO 1 TABLET ORAL TWICE A DAY PRH FOR ANXIETY Quantity: 36 tab(s) Days Supply: 18 Refills: 0 Substitutions Allowed Notes from Pharmacy: Submitted: Order:ALPRAZolam (ALPRAZolam 0.5 mg oral tablet) 1/2 TO 1 TABLET PO BID Qty: 36 tab(s) Refills: 0 Substitutions Allowed PRN IF NEEDED FOR ANXIETY Route To Pharmacy - [facility] 10/04/22, filled 08/14/22 qty 36 last appt 06/19/22, no upcoming needs csa Signed by Pepito Rosales DO 01/30/2023 16:16:[address] [facility] 01-16-2023 Note - From: Janeen Dick RN ([facility] ([facility])) To: Pepito Rosales DO; Sent: 01/16/2023 08:01:36 EST Subject: Med Management Caller Name: MABRYOCTAVIOJEFFERSON S; Caller Number: H , M Caller is: ( X ) Patient ( ) Mother ( ) Father ( ) Pharmacy ( ) Other: Pharmacy to route Rx to: [facility] Patient's Provider: Reviewed Allergies: ( ) Yes ( ) No Pharmacy: [facility] Comments: 1. Name of Medication: XANAX Dosage: Dispense: ( ) New ( ) Refill Comment: 2. Name of Medication: Dosage: Dispense: ( ) New ( ) Refill Comment: 3. Name of Medication: Dosage: Dispense: ( ) New ( ) Refill Comment: 4. Name of Medication: Dosage: Dispense: ( ) New ( ) Refill Comment: ( ) OK to leave message on voice mail ( ) Patient told to expect return call: ( ) today ( ) tomorrow ( ) next work day ( ) Patient's email ( ) Other: Call back phone # now: until: Call back phone # later: Submitted: Order:ALPRAZolam (ALPRAZolam 0.5 mg oral tablet) 1/2 TO 1 TABLET PO BID Qty: 36 tab(s) Refills: 0 Substitutions Allowed PRN IF NEEDED FOR ANXIETY Route To Pharmacy - [facility] 10/04/22, filled 08/14/22 qty 36 last appt 06/19/22, no upcoming needs csa Signed by Pepito Rosales DO 01/16/2023 08:15:00 EST [facility] 01-01-2023 Note - From: Janeen Dick RN ([facility] ([facility])) To: Pepito Rosales DO; Sent: 01/01/2023 07:27:46 EST Subject: FW: Medication Management Due Date/Time: 01/01/2023 14:51:00 EST Caller Name: JEFFERSON MABRY; Caller Number: H , M From: [place] [id number] [facility] To: Pepito Rosales DO Sent: December 29, 2022 1:51:27 PM BOOK CLEANER Subject: Medication Management Due: December 30, 2022 12:02:41 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 On Hold Pending Signature Drug: atorvastatin (Lipitor 80 mg oral tablet), 1 tab(s) PO Daily Quantity: 90 tab(s) Days Supply: 0 Refills: 2 Substitutions Allowed Notes from Pharmacy: Dispensed Drug: atorvastatin (atorvastatin 80 mg oral tablet), TAKE 1 TABLET BY MOUTH DAILY Quantity: 30 tab(s) Days Supply: 30 Refills: 3 Substitutions Allowed Notes from Pharmacy: From: Pepito Rosales DO To: [facility] [employer] Sent: 01/01/2023 07:28:06 EST Subject: FW: Medication Management Submitted: Complete:atorvastatin (Lipitor 80 mg oral tablet) Signed by Pepito Rosales DO 01/01/2023 07:28:00 EST Approved atorvastatin (ATORVASTATIN 80 MG TAB 80 Tablet) TAKE 1 TABLET BY MOUTH DAILY Qty: 30 tab(s) Days Supply: 30 Refills: 3 Substitutions Allowed Route To Pharmacy - [facility] 11-29-2022 Note - From: Unique Bravo ([facility] ([facility] To: Pepito Rosales DO; Sent: 11/29/2022 14:38:43 EDT Subject: FW: Medication Management Due Date/Time: 11/30/2022 14:23:00 EDT Caller Name: JEFFERSON MABRY; Caller Number: , [facility] 11/29/22 Last filled: 10/04/22 Quantity: 36 Last appt: 11/20/22 Upcoming appt: none CSA: From: [place] [address] [facility] To: Carrie Gonzalez CNP Sent: November 29, 2022 1:23:56 PM CDT Subject: Medication Management Due: November 30, 2022 12:06:26 AM CDT On Hold Pending Signature Drug: ALPRAZolam (ALPRAZolam 0.5 mg oral tablet), 1/2 TO 1 TABLET PO BID,PRN:IF NEEDED FOR ANXIETY Quantity: 36 tab(s) Days Supply: 0 Refills: 0 Substitutions Allowed Notes from Pharmacy: Dispensed Drug: ALPRAZolam (ALPRAZolam 0.5 mg oral tablet), TAKE 1/2 TO 1 TABLET BY MOUTH TWICE A DAY NEEDED FOR ANXIETY Quantity: 36 tab(s) Days Supply: 30 Refills: 0 Substitutions Allowed Notes from Pharmacy: Submitted: Order:ALPRAZolam (ALPRAZolam 0.5 mg oral tablet) 1/2 TO 1 TABLET PO BID Qty: 36 tab(s) Refills: 0 Substitutions Allowed PRN IF NEEDED FOR ANXIETY Route To Pharmacy - [facility] 10/04/22, filled 08/14/22 qty 36 last appt 06/19/22, no upcoming needs csa Signed by Pepito Rosales DO 11/29/2022 15:20:00 EDT [facility] 11-28-2022 Note - From: Unique Bravo ([facility] ([facility] To: Pepito Rosales DO; Sent: 11/28/2022 13:26:08 EDT Subject: FW: Medication Management Due Date/Time: 11/29/2022 13:22:00 EDT Caller Name: JEFFERSON MABRY; Caller Number: , Patient matched by Unique Bravo on 11/28/2022 13:25:06 EDT From: [facility] [place] [id number] [facility] To: Carrie Gonzalez CNP Sent: November 28, 2022 12:22:04 PM CDT Subject: Medication Management Due: November 29, 2022 12:05:28 AM CDT On Hold Pending Signature Dispensed Drug: metoprolol (Metoprolol Tartrate 100 mg oral tablet), TAKE 1 TABLET BY MOUTH ONCE A DAY Quantity: 30 tab(s) Days Supply: 30 Refills: 3 Substitutions Allowed Notes from Pharmacy: From: Pepito Rosales DO To: [facility] Sent: 11/28/2022 13:33:13 EDT Subject: FW: Medication Management Submitted: Complete:metoprolol (Metoprolol Tartrate 100 mg oral tablet) Signed by Pepito Rosales DO 11/28/2022 13:33:00 EDT Approved with modifications: metoprolol (METOPROLOL TART 100 MG TAB 100 Tablet) TAKE 1 TABLET BY MOUTH ONCE A DAY Qty: 30 tab(s) Days Supply: 30 Refills: 3 Substitutions Allowed Route To Pharmacy - [facility] Signed by Pepito Rosales DO [facility] 10-02-2022 Note - From: Allie Maldonado LPN ([facility] ([facility] To: Carrie Gonzalez CNP; Sent: 10/02/2022 15:06:55 EDT Subject: FW: Medication Management Due Date/Time: 10/02/2022 12:24:00 EDT Caller Name: JEFFERSON MABRY; Caller Number: , Patient matched by Allie Maldonado LPN on 10/02/2022 15:06:10 EDT From: [facility] To: Pepito Rosales DO Sent: October 01, 2022 11:24:29 AM CDT Subject: Medication Management Due: October 02, 2022 12:31:40 AM CDT On Hold Pending Signature Drug: clopidogrel (clopidogrel 75 mg oral tablet), TAKE 1 TABLET BY MOUTH DAILY Quantity: 30 tab(s) Days Supply: 30 Refills: 3 Substitutions Allowed Notes from Pharmacy: Dispensed Drug: clopidogrel (clopidogrel 75 mg oral tablet), TAKE 1 TABLET BY MOUTH DAILY Quantity: 30 tab(s) Days Supply: 30 Refills: 3 Substitutions Allowed Notes from Pharmacy: On Hold Pending Signature Drug: sertraline (sertraline 25 mg oral tablet), TAKE 1 TABLET BY MOUTH ONCE A DAY Quantity: 30 tab(s) Days Supply: 30 Refills: 3 Substitutions Allowed Notes from Pharmacy: Dispensed Drug: sertraline (sertraline 25 mg oral tablet), TAKE 1 TABLET BY MOUTH ONCE A DAY Quantity: 30 tab(s) Days Supply: 30 Refills: 3 Substitutions Allowed Notes from Pharmacy: From: Carrie Gonzalez APRN, CNP To: [facility] Sent: 10/02/2022 16:33:21 EDT Subject: FW: Medication Management Submitted: Complete:sertraline (sertraline 25 mg oral tablet) Signed by Carrie Gonzalez APRN, CNP 10/02/2022 16:33:00 EDT Submitted: Complete:clopidogrel (clopidogrel 75 mg oral tablet) Signed by Carrie Gonzalez APRN, CNP 10/02/2022 16:33:00 EDT Approved with modifications: clopidogrel (CLOPIDOGREL 75 MG TAB 75 Tablet) TAKE 1 TABLET BY MOUTH DAILY Qty: 30 tab(s) Days Supply: 30 Refills: 3 Substitutions Allowed Route To Pharmacy - [facility] Signed by Carrie Gonzalez APRN, CNP Approved with modifications: sertraline (SERTRALINE HCL 25 MG TABS 25 Tablet) TAKE 1 TABLET BY MOUTH ONCE A DAY Qty: 30 tab(s) Days Supply: 30 Refills: 3 Substitutions Allowed Route To [facility] Signed by Carrie Gonzalez APRN, CNP [facility] 10-02-2022 Note Entered by Mert Maldonado LPN on October 02, 2022 12:00:09 EDT From: Allie Maldonado LPN To: [facility] Sent: 10/02/2022 12:00:09 EDT Subject: Medication Management Not Approved: will propose ALPRAZolam (ALPRAZolam 0.5 MG TABS 0.5 Tablet) 1/1-1T BY MOUTH TWICE A DAY ONLY IF NEEDED FOR ANXIETY Qty: 36 tab(s) Days Supply: 30 Refills: 0 Substitutions Allowed Route To [facility] Signed by Allie Maldonado LPN From: [place] [id number] [facility] To: Carrie Gonzalez CNP Sent: October 01, 2022 11:26:29 AM CDT Subject: Medication Management Due: October 02, 2022 12:32:54 AM CDT On Hold Pending Signature Drug: ALPRAZolam (ALPRAZolam 0.5 mg oral tablet), 1/2 TO 1 TABLET PO BID,PRN:IF NEEDED FOR ANXIETY Quantity: 36 tab(s) Days Supply: 0 Refills: 0 Substitutions Allowed Notes from Pharmacy: Dispensed Drug: ALPRAZolam (ALPRAZolam 0.5 mg oral tablet), 1/1-1T BY MOUTH TWICE A DAY ONLY IF NEEDED FOR ANXIETY Quantity: 36 tab(s) Days Supply: 30 Refills: 0 Substitutions Allowed Notes from Pharmacy: [facility] 06-28-2022 Note - From: Allie Maldonado LPN ([facility]) Cc: Carrie Gonzalez CNP; Sent: 06/28/2022 12:06:43 EDT Subject: FW: Medication Management Due Date/Time: 06/28/2022 13:55:00 EDT Caller Name: JEFFERSON MABRY; Caller Number: H , M From: [facility] [place]note 2[facility]ACY To: BobbyStephenen Simone BHANDARI Sent: June 27, 2022 12:55:33 PM CDT Subject: Medication Management Due: June 28, 2022 12:03:56 AM CDT On Hold Pending Signature Drug: ALPRAZolam (ALPRAZolam 0.5 mg oral tablet), 1/2 TO 1 TABLET PO BID,PRN: NEEDED FOR ANXIETY Quantity: 36 tab(s) Days Supply: 0 Refills: 0 Substitutions Allowed Notes from Pharmacy: Dispensed Drug: ALPRAZolam (ALPRAZolam 0.5 mg oral tablet), TAKE 1/2 TO 1 TABLET BY MOUTH TWICE A DAY ONLY IF NEEDED FOR ANXIETY Quantity: 36 tab(s) Days Supply: 30 Refills: 0 Substitutions Allowed Notes from Pharmacy: From: Carrie Gonzalez APRN, CNP To: [facility] Sent: 06/28/2022 12:21:59 EDT Subject: FW: Medication Management Submitted: Order:ALPRAZolam (ALPRAZolam 0.5 mg oral tablet) 1/2 TO 1 TABLET PO BID Qty: 36 tab(s) Days Supply: 30 Refills: 0 Substitutions Allowed PRN IF NEEDED FOR ANXIETY Route To Pharmacy - [facility] 06/28/22 Signed by Carrie Gonzalez APRN, CNP 06/28/2022 12:21:00 EDT Submitted: Complete:ALPRAZolam (ALPRAZolam 0.5 mg oral tablet) [facility] 01/04/22, filled 11/08/21 qty 36 Signed by Carrie Gonzalez APRN, CNP 06/28/2022 12:21:00 EDT Not Approved: New Rx to follow ALPRAZolam (ALPRAZolam 0.5 MG TABS 0.5 Tablet) TAKE 1/2 TO 1 TABLET BY MOUTH TWICE A DAY ONLY IF NEEDED FOR ANXIETY Qty: 36 tab(s) Days Supply: 30 Refills: 0 Substitutions Allowed Route To [facility] Signed by Carrie Gonzalez APRN, [facility] 05-24-2022 Note - From: Janeen Dick ([facility] ([facility] To: Pepito Rosales DO; Sent: 05/24/2022 14:47:48 EDT Subject: FW: Medication Management Due Date/Time: 05/25/2022 14:47:00 EDT Caller Name: JEFFERSON MABRY; Caller Number: , From: [place] [id number] [facility] To: Pepito Rosales DO Sent: May 24, 2022 1:47:14 PM CDT Subject: Medication Management Due: May 25, 2022 7:30:20 AM CDT On Hold Pending Signature Drug: ALPRAZolam (ALPRAZolam 0.5 mg oral tablet), 1/2 TO 1 TABLET PO BID,PRN: NEEDED FOR ANXIETY Quantity: 36 tab(s) Days Supply: 0 Refills: 0 Substitutions Allowed Notes from Pharmacy: Dispensed Drug: ALPRAZolam (ALPRAZolam 0.5 mg oral tablet), TAKE 1/2 TO 1 TABLET BY MOUTH TWICE A DAY NEEDED FOR ANXIETY Quantity: 36 tab(s) Days Supply: 18 Refills: 0 Substitutions Allowed Notes from Pharmacy: Submitted: Order:ALPRAZolam (ALPRAZolam 0.5 mg oral tablet) 1/2 TO 1 TABLET PO BID Qty: 36 tab(s) Refills: 0 PRN NEEDED FOR ANXIETY Route To Pharmacy - [facility] 01/04/22, filled 11/08/21 qty 36 Signed by Pepito Rosales DO 05/24/2022 14:49:00 EDT [facility] 05-24-2022 Evaluation note Encounter Date Diagnosis Assessment Notes May, Neck pain (ICD-10 - M54.2) [facility] Other 04-18-2023 Note From: Janeen Dick ([facility] ([facility] To: Pepito Rosales DO; Sent: 05/23/2022 15:20:15 EDT Subject: FW: Medication Management Due Date/Time: 05/24/2022 15:19:00 EDT Caller Name: JEFFERSON MABRY; Caller Number: H , From: [place] [address] [facility] To: Pepito Rosales DO Sent: May 23, 2022 2:19:32 PM CDT Subject: Medication Management Due: May 24, 2022 7:33:51 AM CDT On Hold Pending Signature Drug: sertraline (sertraline 25 mg oral tablet), TAKE 1 TABLET BY MOUTH ONCE A DAY Quantity: 30 tab(s) Days Supply: 30 Refills: 3 Substitutions Allowed Notes from Pharmacy: Dispensed Drug: sertraline (sertraline 25 mg oral tablet), TAKE 1 TABLET BY MOUTH ONCE A DAY Quantity: 30 tab(s) Days Supply: 30 Refills: 3 Substitutions Allowed Notes from Pharmacy: On Hold Pending Signature Drug: clopidogrel (clopidogrel 75 mg oral tablet), 1 tab(s) PO Daily Quantity: 90 tab(s) Days Supply: 0 Refills: 3 Substitutions Allowed Notes from Pharmacy: Dispensed Drug: clopidogrel (clopidogrel 75 mg oral tablet), TAKE 1 TABLET BY MOUTH DAILY Quantity: 30 tab(s) Days Supply: 30 Refills: 3 Substitutions Allowed Notes from Pharmacy: From: Pepito Rosales DO To: [facility] Sent: 05/23/2022 15:26:55 EDT Subject: FW: Medication Management Submitted: Complete:clopidogrel (clopidogrel 75 mg oral tablet) Signed by Pepito Rosales DO 05/23/2022 15:26:00 EDT Submitted: Complete:sertraline (sertraline 25 mg oral tablet) Signed by Pepito Rosales DO 05/23/2022 15:26:00 EDT Approved clopidogrel (CLOPIDOGREL 75 MG TABLET 75 Tablet) TAKE 1 TABLET BY MOUTH DAILY Qty: 30 tab(s) Days Supply: 30 Refills: 3 Substitutions Allowed Route To Pharmacy [facility] [employer] Approved sertraline (SERTRALINE HCL 25 MG TABS 25 Tablet) TAKE 1 TABLET BY MOUTH ONCE A DAY Qty: 30 tab(s) Days Supply: 30 Refills: 3 Substitutions Allowed Route To Pharmacy [facility] 03-24-2022 Note From: Janeen Dick ([facility] ([facility])) To: Pepito Rosales DO; Sent: 03/24/2022 07:22:58 EST Subject: FW: Medication Management Due Date/Time: 03/24/2022 12:39:00 EST Caller Name: JEFFERSON MABRY; Caller Number: Toya , Reva From: [facility] [place]note 2[facility]ARMACY To: Pepito Rosales DO Sent: March 23, 2022 11:39:16 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 Subject: Medication Management Due: March 24, 2022 12:11:47 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 On Hold Pending Signature Drug: ALPRAZolam (ALPRAZolam 0.5 mg oral tablet), 1/2 TO 1 TABLET PO BID,PRN: NEEDED FOR ANXIETY Quantity: 36 tab(s) Days Supply: 0 Refills: 0 Substitutions Allowed Notes from Pharmacy: Dispensed Drug: ALPRAZolam (ALPRAZolam 0.5 mg oral tablet), TAKE 1/2 TO 1 TABLET BY MOUTH TWICE A DAY NEEDED FOR ANXIETY Quantity: 36 tab(s) Days Supply: 30 Refills: 0 Substitutions Allowed Notes from Pharmacy: Submitted: Order:ALPRAZolam (ALPRAZolam 0.5 mg oral tablet) 1/2 TO 1 TABLET PO BID Qty: 36 tab(s) Refills: 0 PRN NEEDED FOR ANXIETY Route To Pharmacy - [facility] 01/04/22, filled 11/08/21 qty 36 Signed by Pepito Rosales DO 03/24/2022 07:34:00 [facility] 02-15-2022 NotePROCEDURE: XR FOOT LT MIN 3 VIEWS HISTORY: Pain in left foot COMPARISON: None. FINDINGS: BONES: Tiny calcaneal plantar spur. No fracture, acute abnormality, or significant arthropathy. SOFT TISSUES:No visible soft tissue swelling. EFFUSION:None visible. OTHER: Negative. IMPRESSION: 1. Tiny calcaneal plantar spur of uncertain clinical significance. 2. Otherwise unremarkable left foot. Electronically authenticated by: PEPITO WEINBERG Date: 2022-02-15 10:25[facility] noteNo assessment information availableBucyrus [facility] Work Phone: History general Narrative - Reported* Type Description Date Medical History chronic sinusitus Medical History AIDS/HIV: No Medical History anemia: No Medical History asthma: No Medical History atrial fibrillation: No Medical History cancer: No Medical History diabetes mellitus: No Medical History emphysema: No Medical History hepatitis B: No Medical History hepatitis C: No Medical History hypertension: No Medical History heart disease: Yes Medical History heart murmur: No Medical History hypercholesterolemia: No Medical History irritable bowel syndrome: No Medical History kidney stones: No Medical History osteoporosis: No Medical History seizures: No Medical History stroke: No Medical History thyroid nodule: No Medical History hypercholesterolemia Medical History heart disease Surgical History Sinus Surgery x 2 Surgical History Appendectomy Surgical History Cardiac Stents x 3 Surgical History Heart Cath x 5 Hospitalization History see surgical history [facility] Other Summary Purpose Family History No Family History Records FoundNo Family History Records FoundNo Family History Records Found Advance Directives No Advanced Directives Records Found Advance Directive Response Recorded Date/ Time Advance Directives No March 7:25pm Chief Complaint and Reason for Visit Chief Complaint m54.2 Additional Source Comments (unrecognized sect ion and content) No Status Records FoundNo Status Records FoundNo Status Records Found INFORMATION SOURCE (unrecogn ized section and content) DATE CREATED AUTHOR 02/17/2022 [facility] DATE CREATED AUTHOR AUTHOR'S ORGANIZ ATION 06/14/2022 [facility] DATE CREATED AUTHOR AUTHOR'S ORGANIZ ATION 03/16/2023 [facility] REASON FOR VISIT (unrecogniz ed section and content) Neck pain; occasional numbne ss along his hands Care Teams (unrecognized sec tion and content) Team Status: Active Member Role Status Dates Pepito Rosales DO Primary Care Provider Active Team Status: Inactive Member Role Status Dates Pepito Rosales DO Primary Care Provider Active Tammy Sarmiento MD Attending Provider Active Goals (unrecognized section and content) Goals may be documented in a n alternate section FOR RECORDS PERTAINING TO PATIENTS WHO ARE OR HAVE BEEN ENROLLED IN A CHEMICAL DEPENDENCY/SUBSTANCEABUSE PROGRAM, SOME INFORMATION MAY BE OMITTED. This clinical summary was aggregated from multiple sources. Caution should be exercised in using it in the provision of clinical care. This summary normalizes information from multiple sources, and as a consequence, information in this document may materially change the coding, format and clinical context of patient data. In addition, data may be omitted in some cases. CLINICAL DECISIONS SHOULD BE BASED ON THE PRIMARY CLINICAL RECORDS. [facility] [employer] [facility]. provides no warranty or guarantee of the accuracy or completeness of information in this document.
== END 2023-03-26 09:28 | disposition home or self-care (01) ==
LOC: MRI 09:27
PROVIDERS: Visit Provider Podiatrist Foot & Ankle Surgery
DX: M72.2 Plantar fascial fibromatosis (principal)
CPT/HCPCS: 73721